=== PATIENT | male | born 1965 | race Hispanic/Latino ===

== ENCOUNTER 2018-08-26 07:21 | Emergency (ER) | payer OTHER, SELFPAY ==
[2018-08-26] MEDS ORDERED: TETRACAINE HCL 0.5% 2ML OPTH ONE (08:21)
[2018-08-26] MEDS ORDERED: METHYLPREDNISOLONE 125 MG INJ ONE (08:21)
--- NOTE | 2018-08-26 08:50 | EDPHYS ---
Physician Documentation [facility] Name: Joni Kwan Age: 53 yrs Sex: Male : 1965 Arrival Date: 08/26/2018 Time: 07:22 Bed 19 Private MD: ED Physician Umberto Montesinos HPI: 08/26 08:04 This 53 yrs old Male presents to ER via Ambulatory with complaints of Eye rn Swelling. 08:04 The patient is experiencing matting or discharge, redness, tearing, The patient rn sustained None. to both eyes, caused by an unknown mechanism. Onset: The symptoms/episode began/occurred 2 day(s) ago. Duration: the symptoms are continuous. Aggravated by closing eye, rubbing. Severity of symptoms: At their worst the symptoms were moderate in the emergency department the symptoms are unchanged. The patient has not experienced similar symptoms in the past. REports thinks got something in his eye, both eyes irritated, no change in vision, mild pain, more itchy and swollen, no trauma, + clear drainage. . Historical: - Allergies: 07:42 No Known Allergies; hb - Home Meds: 07:42 None [Active]; hb - PMHx: 07:42 None; hb - PSHx: 07:42 Left eye; hb - Immunization history:: Adult Immunizations up to date. - Social history:: Smoking status: Patient/guardian denies using tobacco. - Ebola Screening: : No symptoms or risks identified at this time. - Family history:: not pertinent. - Hospitalizations: : No recent hospitalization is reported. ROS: 08:04 Constitutional: Negative for fever, chills, and weight loss, Eyes: Negative for injury, rn + redness and discharge ENT: Negative for injury, pain, and discharge, Neck: Negative for injury, pain, and swelling, Skin: Negative for injury, rash, and discoloration, Neuro: Negative for headache, weakness, numbness, tingling, and seizure. Exam: 08:04 Visual Acuity: Visual acuity is within normal limits. rn 08:04 Constitutional: This is a well developed, well nourished patient who is awake, alert, and in no acute distress. Head/Face: Normocephalic, atraumatic. Eyes: Pupils equal round and reactive to light, extra-ocular motions intact. + erythema of both conjunctiva with moderate lid swelling of left eye, normal vision, several debris, looks like cat hair, in folds on conjunctivae, clear ocular drainage Vital Signs: 07:41 BP 188 / 119; Pulse 67; Resp 16; Temp 98.2; Pulse Ox 96% on R/A; Pain 6/10; hb 09:11 BP 167 / 102; Pulse 71; Resp 19; Pulse Ox 95% on R/A; em MDM: 07:41 Patient medically screened. rn 08:46 Differential diagnosis: Foreign body in Allergic conjunctivitis in. Data reviewed: rn vital signs, nurses notes, and as a result, I will discharge patient. Counseling: I had a detailed discussion with the patient and/or guardian regarding: the historical points, exam findings, and any diagnostic results supporting the discharge/admit diagnosis, the need for outpatient follow up, to return to the emergency department if symptoms worsen or persist or if there are any questions or concerns that arise at home. Response to treatment: the patient's symptoms have markedly improved after treatment, and as a result, I will discharge patient. Special discussion: I discussed with the patient/guardian in detail that at this point there is no indication for admission to the hospital. It is understood, however, that if the symptoms persist or worsen the patient needs to return immediately for re-evaluation. ED course: Multiple pieces of cat hair removed from folds on conjunctivae, irrigate thoroughly, feels better, most likely allergic swelling, has improved slightly with irrigation and steroids, will dc home with drops and steroids. . Administered Medications: 08:24 Drug: Tetracaine Drops 0.5 % 1 drops Route: Ophthalmic; Site: both eyes; em 09:01 Follow up: Response: No adverse reaction; Pain is decreased em 08:24 Drug: SOLU-Medrol 125 mg Route: IM; Site: right gluteus; em 09:01 Follow up: Response: No adverse reaction em Disposition: 08/26/18 08:49 Discharged to Home. Impression: Conjunctivitis, Foreign body in conjunctival sac, left eye. - Condition is Stable. - Discharge Instructions: Allergic Conjunctivitis, Adult, Eye Foreign Body. - Prescriptions for Prednisone 20 mg Oral Tablet - take 3 tablet by ORAL route once daily for 5 days; 15 tablet. Vigamox 0.5 % Ophthalmic Drops - instill 1 drop by OPHTHALMIC route every 8 hours for 7 days; 5 milliliter. - Medication Reconciliation Form, Thank You Letter, Antibiotic Education, Prescription Opioid Use form. - Follow up: Marilu Ashton MD; When: As needed; Reason: Recheck today's complaints, Re-evaluation by your physician. - Problem is new. - Symptoms have improved. Signatures: Jaison Griffith, VENDING ATTENDANT VENDING ATTENDANT Umberto Cary MD MD rn Baxter, Heather, RN RN Corrections: (The following items were deleted from the chart) 09:12 08:49 08/26/2018 08:49 Discharged to Home. Impression: Conjunctivitis; Foreign body in em conjunctival sac, left eye. Condition is Stable. Forms are Medication Reconciliation Form, Thank You Letter, Antibiotic Education, Prescription Opioid Use. Follow up: Marilu Ashton; When: As needed; Reason: Recheck today's complaints, Re-evaluation by your physician. Problem is new. Symptoms have improved. rn
--- NOTE | 2018-08-26 08:50 | ER ---
Nurse's Notes [facility] Name: Joni Kwan Age: 53 yrs Sex: Male : 1965 Arrival Date: 08/26/2018 Time: 07:22 Bed 19 Private MD: Diagnosis: Conjunctivitis;Foreign body in conjunctival sac, left eye Presentation: 08/26 07:41 Presenting complaint: Patient states: Left eye swelling and itching x 4 days. hb Transition of care: patient was not received from another setting of care. Onset of symptoms was August 22, 2018. Risk Assessment: Do you want to hurt yourself or someone else? Patient reports no desire to harm self or others. Care prior to arrival: None. 07:41 Method Of Arrival: Ambulatory hb 07:41 Acuity: KAE 3 hb 08:00 Initial Sepsis Screen: Does the patient meet any 2 criteria? No. Patient's initial em sepsis screen is negative. Does the patient have a suspected source of infection? No. Patient's initial sepsis screen is negative. Historical: - Allergies: 07:42 No Known Allergies; hb - Home Meds: 07:42 None [Active]; hb - PMHx: 07:42 None; hb - PSHx: 07:42 Left eye; hb - Immunization history:: Adult Immunizations up to date. - Social history:: Smoking status: Patient/guardian denies using tobacco. - Ebola Screening: : No symptoms or risks identified at this time. - Family history:: not pertinent. - Hospitalizations: : No recent hospitalization is reported. Screenin:00 Abuse screen: Denies threats or abuse. Nutritional screening: No deficits noted. em Tuberculosis screening: No symptoms or risk factors identified. Fall Risk None identified. Assessment: 08:00 General: Appears in no apparent distress. Behavior is calm, cooperative. Pain: em Complains of pain in left eye Pain currently is 6 out of 10 on a pain scale. Neuro: Level of Consciousness is awake, alert, obeys commands, Oriented to person, place, time, situation. Cardiovascular: Capillary refill < 3 seconds Patient's skin is warm and dry. Respiratory: Airway is patent Respiratory effort is even, unlabored, Respiratory pattern is regular, symmetrical. GI: Abdomen is obese. EENT: Eyes with foreign body noted in iris of left eye Sclera/Cornea are reddened in outer aspect of conjuctiva of right eye, inner aspect of conjuctiva of right eye, outer aspect of conjuctiva of left eye and inner aspect of conjunctiva of left eye Lid(s) swelling noted to left eye. Derm: Skin is intact, Skin is pink, warm \T\ dry. Musculoskeletal: Range of motion: intact in all extremities. 08:05 Reassessment: I agree with previous assessment. hb 09:11 Reassessment: Patient appears in no apparent distress at this time. Patient and/or em family updated on plan of care and expected duration. Pain level reassessed. Patient is alert, oriented x 3, equal unlabored respirations, skin warm/dry/pink. Patient states feeling better. Vital Signs: 07:41 BP 188 / 119; Pulse 67; Resp 16; Temp 98.2; Pulse Ox 96% on R/A; Pain 6/10; hb 09:11 BP 167 / 102; Pulse 71; Resp 19; Pulse Ox 95% on R/A; em ED Course: 07:22 Patient arrived in ED. as 07:41 Triage completed. hb 07:41 Umberto Montesinos MD is Attending Physician. rn 07:42 Arm band placed on right wrist. hb 07:48 Jaison Griffith LVN is Primary Nurse. em 08:00 Patient has correct armband on for positive identification. Bed in low position. Call em light in reach. 08:00 No provider procedures requiring assistance completed. Patient did not have IV access em during this emergency room visit. 08:48 Marilu Ashton MD is Referral Physician. rn Administered Medications: 08:24 Drug: Tetracaine Drops 0.5 % 1 drops Route: Ophthalmic; Site: both eyes; em 09:01 Follow up: Response: No adverse reaction; Pain is decreased em 08:24 Drug: SOLU-Medrol 125 mg Route: IM; Site: right gluteus; em 09:01 Follow up: Response: No adverse reaction em Outcome: 08:00 Discharged to home ambulatory. em 08:00 Condition: good 08:00 Discharge instructions given to patient, Instructed on discharge instructions, follow up and referral plans. medication usage, Demonstrated understanding of instructions, follow-up care, medications, Prescriptions given X 2. 08:49 Discharge ordered by . rn 09:12 Patient left the ED. em Signatures: Jaison Griffith LVN LVN Ela Avila Roman, MD MD rn Torri Nelson, SHAKIR RN hb
== END 2018-08-26 09:12 | disposition home or self-care (01) ==
LOC: ER 07:21
DX: H10.9 Unspecified conjunctivitis (principal); T15.12XA Foreign body in conjunctival sac, left eye, initial encounter
CPT/HCPCS: 96372; 99283; J2930

== ENCOUNTER 2019-11-16 11:58 | Observation (INO) | payer OTHER, SELFPAY ==
[2019-11-16 13:06] LABS: Absolute Lymphocytes (CBC) 1.5 K/uL (0.7-4.9); Basophils % 0.8 % (0-1.3); Hematocrit 51.4 % (39.6-49.0); Lymphocytes % 13.7 % (15.3-44.8); MPV 9.4 fL (7.6-11.3); RBC Red Blood Cell Count 6.18 M/uL (4.33-5.43)
--- NOTE | 2019-11-16 13:09 | RAD REPORT ---
EXAM DESCRIPTION: RAD - Chest Pa And Lat (2 Views) - 11/16/2019 1:02 pm CLINICAL HISTORY: fever, cough COMPARISON: September 2008 TECHNIQUE: PA and lateral views of the chest were obtained. FINDINGS: The lungs are clear. Heart size is normal and central vasculature is within normal limit s. No pleural effusion or pneumothorax seen. No acute bony finding noted. No aortic abnormality. IMPRESSION: No acute cardiopulmonary process. No suspicious interval change.
[2019-11-16 13:12] LABS: Arterial Blood Carboxyhemoglob 0.9 % (0-1.5); Blood O2 Saturation 93.5 % (92-98.5)
[2019-11-16 13:13] LABS: Protime INR 1.11
[2019-11-16 13:33] LABS: ALT/SGPT 33 U/L (12-78); AST/SGOT 19 U/L (15-37); Albumin 3.5 g/dL (3.4-5.0); Alkaline Phosphatase 95 U/L (45-117); BUN Blood Urea Nitrogen 14 mg/dL (7-18); Bicarbonate 33 mmol/L (21-32); Bilirubin Total 0.5 mg/dL (0.2-1.0); Glucose Level 110 mg/dL (74-106); Potassium 4.4 mmol/L (3.5-5.1); Protein, Total 8.2 g/dL (6.4-8.2); Sodium Level 136 mmol/L (136-145)
[2019-11-16] MEDS ORDERED: HYDRALAZINE HCL 20 MG/ML VIAL ONE (13:40)
--- NOTE | 2019-11-16 15:33 | ER ---
Nurse's Notes [facility] Name: Joni Kwan Age: 54 yrs Sex: Male : 1965 Arrival Date: 11/16/2019 Time: 12:00 Bed 28 [facility] MD: Diagnosis: Acute bronchitis;Bradycardia, unspecified Presentation: 11/16 12:08 Presenting complaint: Productive cough with yellow sputum, mild SOB, sore throat, hb headache, and nausea x 3-4 days. Vomit x 1 today. Transition of care: patient was not received from another setting of care. Onset of symptoms was November 13, 2019. Risk Assessment: Do you want to hurt yourself or someone else? Patient reports no desire to harm self or others. Initial Sepsis Screen: Does the patient meet any 2 criteria? No. Patient's initial sepsis screen is negative. Care prior to arrival: None. 12:08 Method Of Arrival: Ambulatory hb 12:08 Acuity: KAE 3 hb Historical: - Allergies: 12:10 Tramadol HCl; hb - Home Meds: 12:10 None [Active]; hb - PMHx: 12:10 None; hb - PSHx: 12:10 Left eye; Ankle - Right; hb - Immunization history:: Adult Immunizations up to date. - Social history:: Smoking status: Patient/guardian denies using tobacco. - Ebola Screening: : No symptoms or risks identified at this time. Screenin:56 Abuse screen: Denies threats or abuse. Nutritional screening: No deficits noted. sr5 Tuberculosis screening: No symptoms or risk factors identified. Fall Risk No fall in past 12 months (0 pts). No secondary diagnosis (0 pts). IV access (20 points). Ambulatory Aid- None/Bed Rest/Nurse Assist (0 pts). Gait- Impaired (20 pts.). Mental Status- Oriented to own ability (0 pts). Total Graham Fall Scale indicates Low Risk Score (25-44 pts). Fall prevention measures have been instituted. Frequent Obs/Assesments occuring. Assessment: 12:56 General: Appears ill, Behavior is calm, cooperative. Pain: Denies pain. Neuro: Level of sr5 Consciousness is awake, alert, obeys commands, Oriented to person, place, time, situation, but drifts off to sleep quickly. When patient sleeps HR drops down to 40s with nonconducted Pwaves, 2 nonconducted pwaves noted, then rhythm returns to 70's or 80's, pt reports that he has sleep apnea and has used a machine at night but no longer does. Provider notifed. 12 lead obtained. Pt to xray via wheelchair per order. Skin warm/dry/nc, SR on monitor outside of the previously mentioned episodes of sinus edu with nonconducted Pwaves, 18G LAC, labs drawn, BC #1 sent. Equal unlabored resp, room air sat remains >95%. . 15:36 Reassessment: No change in patient condition. Admitting doctor at bedside, manual BP sr5 164/94, auto 163/92 RIGHT arm. c/o headache. provider notifed. Equal unlabored resp, RA, skin warm/dry/nc, SR on monitor, HR 87, continues to edu down when sleeping, IV sites asympt/SL. Awaiting admission. Vital Signs: 12:10 BP 207 / 101; Pulse 68; Resp 18; Temp 97.9; Pulse Ox 100% on R/A; Weight 129.27 kg; hb Height 5 ft. 5 in. (165.10 cm); Pain 6/10; 12:56 BP 206 / 118; Pulse 71; Resp 20; Pulse Ox 100% on R/A; sr5 13:49 BP 159 / 89; Pulse 75; Resp 20; Pulse Ox 98% on R/A; sr5 14:31 BP 158 / 64; Pulse 53; Resp 20; Pulse Ox 100% on R/A; sr5 15:36 BP 164 / 94; Pulse 82; Resp 22; Pulse Ox 100% on R/A; Pain 8/10; sr5 16:27 BP 183 / 84 RA Supine; Pulse 86; Resp 20; Temp 99.0(O); Pulse Ox 100% on R/A; Pain 4/10;sr5 12:10 Body Mass Index 47.43 (129.27 kg, 165.10 cm) hb 13:49 continues to have episodes of sinus edu with nonconducted pwaves, HR down to 27 bpm sr5 on monitor, provider aware, quickly returns to HR 60-80's. 16:27 headache sr5 Vitals: 12:56 Cardiac Rhythm Assessment Sinus rhythm Other , intermintent episodes of nonconducted sr5 Pwaves. 15:36 Cardiac Rhythm Assessment Sinus rhythm. sr5 ED Course: 12:00 Patient arrived in ED. as 12:05 Ashish Kilpatrick PA is PHCP. stef 12:05 Emeka Baldwin MD is Attending Physician. jm 12:09 Triage completed. hb 12:10 Arm band placed on. hb 12:14 Truong Houston, RN is Primary Nurse. sr5 12:43 First set of blood cultures drawn. sr5 12:56 Patient has correct armband on for positive identification. Placed in gown. Bed in low sr5 position. Call light in reach. Side rails up X 1. surveillance monitor on. Pulse ox on. NIBP on. 12:56 Initial lab(s) drawn, by me, sent to lab. Inserted saline lock: 18 gauge in left sr5 antecubital area, using aseptic technique. Blood collected. 13:02 Chest Pa And Lat (2 Views) XRAY In Process Unspecified. EDMS 13:45 Second set of blood cultures drawn by me. jb1 13:46 Inserted saline lock: 22 gauge in right antecubital area, using aseptic technique. jb1 15:32 Ayan Chandra MD is Hospitalizing Provider. [facility] [place] Administered Medications: 13:48 Drug: hydrALAZINE 10 mg Route: IV; Rate: calculated rate; Site: left antecubital; sr5 14:31 Follow up: Response: Blood pressure is lowered sr5 17:47 Drug: hydrALAZINE 10 mg Route: IV; Rate: bolus; Site: left upper arm; sr5 17:48 Drug: Tylenol 650 mg Route: PO; sr5 Outcome: 15:32 Decision to Hospitalize by Provider. jm 18:14 Patient left the ED. sr5 Signatures: Dispatcher [employer] EDMS Jed Corley jb1 Ashish Kilpatrick PA PA jmm Martinez, Amelia as Baxter, Heather, RN RN Truong Houston, SHAKIR RN sr5
--- NOTE | 2019-11-16 15:34 | EDPHYS ---
Physician Documentation [facility] Name: Joni Kwan Age: 54 yrs Sex: Male : 1965 Arrival Date: 11/16/2019 Time: 12:00 Bed 28 Private MD: ED Physician Emeka Baldwin HPI: 11/16 12:22 This 54 yrs old Male presents to ER via Ambulatory with complaints of Flu jmm Symptoms. 12:22 The patient or guardian reports cough, described as moderate. Onset: The jmm symptoms/episode began/occurred gradually. Modifying factors: The symptoms are alleviated by nothing. the symptoms are aggravated by nothing. Associated signs and symptoms: Pertinent positives: sore throat, vomiting. This is a 54 year old male with no known chronic medical conditions that presents to the ED with complaints of cough, congestion, sore throat, vomiting beginning 2 days ago. . Historical: - Allergies: 12:10 Tramadol HCl; hb - Home Meds: 12:10 None [Active]; hb - PMHx: 12:10 None; hb - PSHx: 12:10 Left eye; Ankle - Right; hb - Immunization history:: Adult Immunizations up to date. - Social history:: Smoking status: Patient/guardian denies using tobacco. - Ebola Screening: : No symptoms or risks identified at this time. ROS: 12:22 Cardiovascular: Negative for chest pain, palpitations, and edema, Back: Negative for jmm injury and pain. 12:22 Constitutional: Positive for body aches, fatigue. 12:22 Respiratory: Positive for cough. 12:22 Abdomen/GI: Positive for vomiting. 12:22 All other systems are negative. Exam: 12:22 Constitutional: This is a well developed, well nourished patient who is awake, alert, jmm and in no acute distress. Head/Face: atraumatic. 12:22 Neck: Trachea midline, Supple Chest/axilla: Normal chest wall appearance and motion. 12:22 Back: Normal ROM Skin: General appearance color normal MS/ Extremity: Moves all extremities, no obvious deformities appreciated, no edema noted to the lower extremities Neuro: Awake and alert, normal gait Psych: Behavior is normal, Mood is normal, Patient is cooperative and pleasant 12:22 Eyes: Conjunctiva: exudate, in the left eye, injected. 12:22 ENT: Posterior pharynx: erythema, that is mild. 12:22 Cardiovascular: Rate: normal, Rhythm: regular, Pulses: no pulse deficits are appreciated. 12:22 Respiratory: the patient does not display signs of respiratory distress, Respirations: normal, Breath sounds: are clear throughout. 12:22 Abdomen/GI: Inspection: obese Bowel sounds: normal, Palpation: abdomen is soft and non-tender, in all quadrants. Vital Signs: 12:10 BP 207 / 101; Pulse 68; Resp 18; Temp 97.9; Pulse Ox 100% on R/A; Weight 129.27 kg; hb Height 5 ft. 5 in. (165.10 cm); Pain 6/10; 12:56 BP 206 / 118; Pulse 71; Resp 20; Pulse Ox 100% on R/A; sr5 13:49 BP 159 / 89; Pulse 75; Resp 20; Pulse Ox 98% on R/A; sr5 14:31 BP 158 / 64; Pulse 53; Resp 20; Pulse Ox 100% on R/A; sr5 15:36 BP 164 / 94; Pulse 82; Resp 22; Pulse Ox 100% on R/A; Pain 8/10; sr5 16:27 BP 183 / 84 RA Supine; Pulse 86; Resp 20; Temp 99.0(O); Pulse Ox 100% on R/A; Pain 4/10;sr5 12:10 Body Mass Index 47.43 (129.27 kg, 165.10 cm) hb 13:49 continues to have episodes of sinus edu with nonconducted pwaves, HR down to 27 bpm sr5 on monitor, provider aware, quickly returns to HR 60-80's. 16:27 headache sr5 MDM: 12:15 Patient medically screened. [facility] 15:30 Data reviewed: vital signs, nurses notes. Counseling: I had a detailed discussion with stef the patient and/or guardian regarding: the historical points, exam findings, and any diagnostic results supporting the discharge/admit diagnosis, lab results, radiology results, the need for further work-up and treatment in the hospital. ED course: I discussed the patient with Dr. Chandra due to the patient's episodes of bradycardia. After evaluation Dr. Chandra accepted the patient for admission for observation. . 11/16 12:22 Order name: Flu; Complete Time: 13:37 [facility] 11/16 12:22 Order name: Strep; Complete Time: 13:37 [facility] 11/16 12:22 Order name: CBC with Diff; Complete Time: 13:37 [facility] 11/16 12:22 Order name: CMP; Complete Time: 13:37 [facility] 11/16 12:22 Order name: Procalcitonin; Complete Time: 13:52 [facility] 11/16 12:22 Order name: Lactate; Complete Time: 14:33 [facility] 11/16 12:22 Order name: Blood Culture Adult (2) [facility] 11/16 12:27 Order name: Troponin (emerg Dept Use Only); Complete Time: 13:37 [facility] 11/16 12:40 Order name: Ptt, Activated; Complete Time: 13:37 [facility] 11/16 13:02 Order name: ABG [facility] 11/16 13:07 Order name: Protime (+INR); Complete Time: 13:37 [facility] 11/16 13:23 Order name: Throat Culture [facility] 11/16 16:25 Order name: Phosphorus; Complete Time: 16:29 [facility] 11/16 12:22 Order name: Chest Pa And Lat (2 Views) XRAY; Complete Time: 13:11 [facility] 11/16 12:22 Order name: Saline Lock; Complete Time: 12:56 [facility] 11/16 12:27 Order name: EKG - Nurse/Tech; Complete Time: 12:56 [facility] 11/16 14:49 Order name: EKG Electrocardiogram [facility] 11/16 16:25 Order name: Magnesium; Complete Time: 16:29 EDMS Administered Medications: 13:48 Drug: hydrALAZINE 10 mg Route: IV; Rate: calculated rate; Site: left antecubital; sr5 14:31 Follow up: Response: Blood pressure is lowered sr5 17:47 Drug: hydrALAZINE 10 mg Route: IV; Rate: bolus; Site: left upper arm; sr5 17:48 Drug: Tylenol 650 mg Route: PO; sr5 Disposition: 11/16/19 15:32 Hospitalization ordered by Ayan Chandra for Observation. Preliminary diagnosis are Acute bronchitis, Bradycardia, unspecified. - Bed requested for Telemetry/MedSurg (observation). - Status is Observation. sr5 - Condition is Stable. - Problem is new. - Symptoms are unchanged. UTI on Admission? No Addendum: 11/17/2019 19:35 Co-signature as Attending Physician, Emeka Baldwin MD I agree with the assessment and k dr plan of care. Signatures: Dispatcher [employer] [facility] Jannet Del Angel Emeka Stafford MD MD [facility] Ashish Kilpatrick, GLADYS PA [facility] Torri Nelson, RN RN Truong Houston, RN RN sr5 Corrections: (The following items were deleted from the chart) 11/16 13:07 12:41 PROTIME (+INR)+[id number].BRZ ordered. [facility] 16:24 15:32 Hospitalization Ordered by Ayan Chandra MD for Observation. Preliminary diagnosis bd is Acute bronchitis; Bradycardia, unspecified. Bed requested for Telemetry/MedSurg (observation). Status is Observation. Condition is Stable. Problem is new. Symptoms are unchanged. UTI on Admission? No. [facility] 18:14 16:24 11/16/2019 15:32 Hospitalization Ordered by Ayan Chandra MD for Observation. sr5 Preliminary diagnosis is Acute bronchitis; Bradycardia, unspecified. Bed requested for Telemetry/MedSurg (observation). Status is Observation. Condition is Stable. Problem is new. Symptoms are unchanged. UTI on Admission? No. bd
[2019-11-16 16:24] LABS: Magnesium 2.2 mg/dL (1.8-2.4); Phosphorus 2.8 mg/dL (2.5-4.9)
[2019-11-16] MEDS ORDERED: ACETAMINOPHEN 325 MG TABLET ONE (17:27)
[2019-11-16] MEDS ORDERED: ALBUTEROL 2.5 MG/3 ML NEB SOL NEB PRN (18:36)
[2019-11-16] MEDS ORDERED: ONDANSETRON 4 MG/2 ML VIAL IV PRN (18:36)
[2019-11-16] MEDS ORDERED: IPRATROPIUM BROM 0.5MG/2.5ML NEB PRN (18:36)
[2019-11-16 18:41] VITALS: BMI 47.4
[2019-11-16] MEDS ORDERED: METHYLPREDNISOLONE 40 MG INJ IV ONE (19:00)
[2019-11-16] MEDS: NA CHLORIDE 0.9% 1,000 ML IV SCH (20:06)
[2019-11-16 21:34] LABS: BUN Blood Urea Nitrogen 18 mg/dL (7-18); Bicarbonate 28 mmol/L (21-32); Glucose Level 132 mg/dL (74-106); Potassium 3.7 mmol/L (3.5-5.1); Sodium Level 136 mmol/L (136-145); Troponin I < 0.02 ng/mL (0.0-0.045)
[2019-11-16 21:50] LABS: Arterial Blood Carboxyhemoglob 1.2 % (0-1.5); Blood Gas Oxyhemoglobin 78.2 % (94-97); Blood O2 Saturation 79.6 % (92-98.5)
[2019-11-16 22:32] LABS: CKMB Creatine Kinase MB 2.6 ng/mL (0.3-3.6); Magnesium 2.2 mg/dL (1.8-2.4); Phosphorus 2.5 mg/dL (2.5-4.9); Thyroid Stimulating Hormone 0.593 uIU/mL (0.360-3.740)
[2019-11-16 22:55] LABS: Urine Appearance CLOUDY; Urine Blood NEGATIVE (NEG); Urine Color YELLOW; Urine Glucose NEGATIVE (NEG); Urine Protein 1+ (NEG); Urine Specific Gravity 1.025 (1.005-1.030)
[2019-11-16 23:35] LABS: Urine Microscopic Reflex ORDER UMIC
[2019-11-17 00:35] LABS: Urine Bacteria <20 /HPF (NONE SEEN); Urine Culture Reflex Order NOT NEEDED; Urine Mucus 3+ /HPF (NONE SEEN); Urine RBC <5 /HPF (NONE SEEN)
[2019-11-17 00:36] LABS: Urine Bilirubin NEGATIVE (NEG)
--- NOTE | 2019-11-17 01:14 | HP ---
Date of Admission: 11/16/2019 Chief Complaint: Cough, congestion, bradycardia. History Of Present Illness: Patient is a 54-year-old male with no significant past medical history, has not seen a physician in over 10 years, morbidly obese male, does have sleep apnea, but does not u se his CPAP machine, comes in for cough, congestion, and nausea. Patient had episode of green vomitu s. Denies any ill contacts. The patient's symptoms are constant, moderate, progressively worsening. He did not have any fever, chills. Does report some cough now with productive sputum. The patient denies any abdominal pain or diarrhea. The patient's workup revealed normal WBC count. There were no signs of sepsis. Lactate and procalcitonin were negative. Denied any chest pain or any significa nt shortness of breath. His ABG, however, showed a pCO2 of 58, PO2 of 71, and bicarb of 31.5, indica ting that he is a chronic CO2 retainer. Patient is a nonsmoker. Patient however, when he dozed off in the ER, did have multiple episodes of sinus bradycardia, the heart rate lowest in the 20s. The keyona kemp was therefore referred for admission. The patient's blood pressure was not well controlled 160 s/100s, was given hydralazine. When seen in the ER, he was awake, alert, and oriented x3, in some mi ld distress. Past Medical History: Obstructive sleep apnea, likely has multiple undiagnosed conditions including hypertension and chronic obstructive pulmonary disease. Surgical History: None. Allergies: TRAMADOL CAUSES NAUSEA AND VOMITING, MOST LIKELY AN ADVERSE REACTION, ABLE TO TOLERATE CO DEINE. Medications: None. Family History: Patient denies any family history of hypertension, diabetes, or cancer. Social History: Patient denies any tobacco use, alcohol use, or illicit drug use. Patient works in [employer]. , lives here locally. Review of Systems: Ten-point system reviewed, negative except as per HPI. Physical Examination: Vital Signs: Blood pressure 207/101, pulse 68, respirations 18, temperature 97.9, O2 100% on room ai r. General: Awake, alert, and oriented x3. Morbidly obese male, slightly ill-appearing. HEENT: Normocephalic, atraumatic. PERRLA. EOMI. Moist mucous membranes. Oropharynx is clear. Po or dentition. Conjunctivae are hyperemic. Neck: Supple, no JVD. Trachea midline. CV: S1, S2. Sinus bradycardia. Extremities: Peripheral pulses weak. Respiratory: Diminished breath sounds. No wheezing. Some rhonchi heard. No use of accessory muscl es. No stridor. Gastrointestinal: Abdomen is soft, nontender, nondistended. Positive bowel sounds. No guarding or rigidity. Extremities: No clubbing or cyanosis. No peripheral edema. Neuro: Cranial nerves 2 through 12 intact grossly. No focal neurological deficits. Speech is mary ellen l. Strength is 5/5 bilateral upper and lower extremities. Sensation intact to light touch. Skin: The patient has varicose veins of the lower extremities. Has very dry skin on the lower extre mities with excoriations in between his toes. Also exhibit signs of peripheral vascular disease and has minimal hair growth on his legs. Psych: Mood is okay. Affect is full. Insight and judgment are good. Laboratory Data: WBC 10.8, hemoglobin 16.7, hematocrit 51.4, platelets 268, neutrophils 77.6%. INR 1.11. ABGs; pH 7.35, pCO2 58.2, PO2 71.8, bicarb 31.5. Sodium 136, potassium 4.4, chloride 101, CO2 of 33, BUN 14, creatinine 0.82, glucose 110, lactate 1.1, calcium 8.9. Troponin less than 0.02. Pr ocalcitonin less than 0.05. Influenza screen negative. Strep screen also negative. Blood cultures have been obtained. Imaging Studies: Chest x-ray, no acute cardiopulmonary process, no suspicious interval change. Assessment: A 54-year-old male with, 1.Accelerated hypertension. Blood pressure systolic 200s, improved with hydralazine. We will mannie nue to monitor closely. We will add oral antihypertensives. 2.Acute bronchitis. We will give 1 dose of steroids and continue with nebulizer treatments. Patien t is hypoxemic. ABG shows a PO2 of 71. The patient is also hypercapnic. 3.Acute respiratory distress with hypoxia and hypercapnia. We will place on supplemental oxygen. W e will initiate BiPAP at night. 4.Obstructive sleep apnea. Patient has been noncompliant with his CPAP machine. He will likely nee d repeat sleep study as an outpatient and Pulmonology followup. We will continue with CPAP at night. 5.Hyperglycemia without diagnosis of diabetes. We will check hemoglobin A1c. 6.Morbid obesity, counseled. 7.Deep venous thrombosis prophylaxis, Lovenox. Plan: Admit the patient to Med-Surg, place as observation. Patient was counseled regarding followup regularly and establishing care with a family physician. ZHOU Voice ID: [id number]
[2019-11-17] MEDS: HYDRALAZINE HCL 20 MG/ML VIAL IV PRN ×2 (01:30→05:13)
[2019-11-17] MEDS: NA CHLORIDE 0.9% 1,000 ML IV SCH ×2 (03:25→14:26)
[2019-11-17] MEDS: ACETAMINOPHEN 500 MG TAB PO PRN (05:31)
[2019-11-17 06:03] LABS: Absolute Lymphocytes (CBC) 1.1 K/uL (0.7-4.9); Basophils % 0.2 % (0-1.3); Hematocrit 51.5 % (39.6-49.0); Lymphocytes % 9.1 % (15.3-44.8); MPV 9.5 fL (7.6-11.3)
[2019-11-17 06:06] LABS: ALT/SGPT 29 U/L (12-78); AST/SGOT 13 U/L (15-37); Albumin 3.5 g/dL (3.4-5.0); Alkaline Phosphatase 97 U/L (45-117); BUN Blood Urea Nitrogen 18 mg/dL (7-18); Bicarbonate 28 mmol/L (21-32); Bilirubin Total 0.5 mg/dL (0.2-1.0); Glucose Level 128 mg/dL (74-106); Potassium 4.8 mmol/L (3.5-5.1); Protein, Total 8.5 g/dL (6.4-8.2); Sodium Level 137 mmol/L (136-145); Thyroid Stimulating Hormone 0.455 uIU/mL (0.360-3.740)
[2019-11-17] MEDS: predniSONE 20 MG TAB PO SCH (08:46)
[2019-11-17] MEDS: Levofloxacin500mg IV 500 MG/100 ML BAG IV SCH (08:46)
[2019-11-17] MEDS: AMLODIPINE 10 MG TAB PO SCH (08:47)
[2019-11-17] MEDS: ENOXAPARIN 40 MG/0.4 ML SQ SCH (08:47)
[2019-11-17 09:00] LABS: Blood Morphology Comment NOT SEEN (NOT SEEN); Platelet Estimate ADEQ
[2019-11-17] MEDS ORDERED: INFLUENZA VACCINE (for 3y+) 0.5 ML DOSE IMVAC ONE (10:00)
--- NOTE | 2019-11-17 17:47 | PN ---
Subjective: Currently, patient is sitting at the side of the bed. His shortness of breath is somewh at better. He was on CPAP last night. He had episode of severe bradycardia. His heart rate accordi ng to the charge nurse went down all the way to the 20s. Blood pressure as well as dropped. His tem perature . He did not have any chest pain or abdominal pain. There was no nausea or vomit ing. Family is at the bedside. Physical Examination: Vital Signs: Blood pressure 128/67, respiratory rate 18, pulse 97, temperature 97.7, saturating 94% on room air. General: He is alert and oriented x3. Does not look in any distress. HEENT: Atraumatic, normocephalic. PERRLA. Oral mucosa is moist. Neck: Supple. No JVD. Chest: Mild rhonchi with expiratory wheezing. Heart: Regular rate and rhythm. S1, S2 normal. No gallop or murmur. Abdomen: Soft, nontender. No masses. No hepatosplenomegaly. Positive bowel sounds. Extremities: No clubbing or cyanosis. He does have +1 edema. Neurologic: Grossly intact. Cranial nerves exam 2 through 12 intact. Normal sensation. Normal ref lexes. Varicose vein noted in the lower extremity. Very dry skin with excoriation between his toes. Laboratory Data: Currently, labs: CBC; white blood cells 11.9, hemoglobin 16.6, platelets _. Chemistry within normal limits except for glucose of 128. Hemoglobin A1c pending. TSH normal. Cardiac enzyme negative. Assessment And Plan: 1.Accelerated hypertension, much better. The patient needs oral antihypertensives at home. I will start him on Norvasc here while inpatient. His blood pressure today is better. 2.Bronchitis. The patient will receive 1 dose of steroid with nebs. He is somewhat better. I will continue prednisone 60 mg as well as Levaquin for now as well as inhaler. 3.Obstructive sleep apnea. Patient is noncompliant with his CPAP. He will need to follow up with h is sleep doctor as outpatient, adjust his setting and mask. 4.Mild hyperglycemia. Hemoglobin A1c check was still pending. 5.Morbid obesity. Advised to lose weight. 6.Episode of bradycardia last night. We will keep the patient today until he gets evaluated by Card iology and see if the patient needs Holter monitor or any further workup. TSH is normal. There is n o electrolyte imbalance. 7.Deep vein thrombosis prophylaxis, on Lovenox. LORNA/SALLY Voice ID: [id number] Report ID: [id number]
[2019-11-18] MEDS: NA CHLORIDE 0.9% 1,000 ML IV SCH ×2 (00:21→10:36)
[2019-11-18] MEDS: ACETAMINOPHEN 500 MG TAB PO PRN (06:51)
[2019-11-18 08:51] VITALS: O2SAT 94
[2019-11-18] MEDS: AMLODIPINE 10 MG TAB PO SCH (09:00)
[2019-11-18] MEDS: ENOXAPARIN 40 MG/0.4 ML SQ SCH (09:08)
[2019-11-18] MEDS: Levofloxacin500mg IV 500 MG/100 ML BAG IV SCH (09:08)
[2019-11-18] MEDS: predniSONE 20 MG TAB PO SCH (09:08)
--- NOTE | 2019-11-18 11:46 | EKG ---
Test Date: 2019-11-16 Test Time: 22:00:09 Enthone Solder Stripper: RT-Dianna MEASUREMENT RESULTS: Intervals: Rate: 84 GA: 186 QRSD: 96 QT: 388 QTc: 458 [place]: P: 45 GA: 186 QRS: 62 T: 40 INTERPRETIVE STATEMENTS: Normal sinus rhythm Cannot rule out Anterior infarct, age undetermined Abnormal ECG Compared to ECG 11/16/2019 14:38:21 Myocardial infarct finding now present Sinus bradycardia no longer present Sinus arrhythmia no longer present Right-axis deviation no longer present Electronically Signed On 11-18-19 11:42:21 PROGRAMMING EQUIPMENT OPERATOR by Gonzales Sepulveda
--- NOTE | 2019-11-18 11:48 | EKG ---
Test Date: 2019-11-16 Test Time: 14:38:21 Offset Press Operator: SARTHAK MEASUREMENT RESULTS: Intervals: Rate: 42 FL: 196 QRSD: 100 QT: 418 QTc: 349 [place]: P: 44 FL: 196 QRS: 96 T: 40 INTERPRETIVE STATEMENTS: Marked sinus bradycardia with marked sinus arrhythmia Rightward axis Abnormal ECG Compared to ECG 11/16/2019 12:52:52 Right-axis deviation now present Sinus rhythm no longer present Myocardial infarct finding no longer present Electronically Signed On 11-18-19 11:42:38 PLAY LEADER by Gonzales Sepulveda
--- NOTE | 2019-11-18 11:49 | EKG ---
Test Date: 2019-11-16 Test Time: 12:52:52 Funding Coordinator: DRISS MEASUREMENT RESULTS: Intervals: Rate: 82 MS: 194 QRSD: 98 QT: 386 QTc: 450 [place]: P: 53 MS: 194 QRS: 66 T: 41 INTERPRETIVE STATEMENTS: Normal sinus rhythm Cannot rule out Anterior infarct, age undetermined Abnormal ECG No previous ECG available for comparison Electronically Signed On 11-18-19 11:42:41 PAD MACHINE FEEDER by Gonzales Sepulveda
[2019-11-18 14:21] VITALS: BP 155/82; TEMP 97.5
--- NOTE | 2019-11-19 08:16 | DS ---
Date of Discharge: 11/18/2019 Discharge Diagnoses: 1.Acute bronchitis. 2.Polycythemia. 3.Obstructive sleep apnea. 4.Morbid obesity. 5.Episode of bradycardia. 6.Hypertension. Consult: Cardiology. Procedure: Chest x-ray, which was normal. For history of present illness, please refer to Dr. Chandra's admission note. Hospital Course: Initially, patient presented with progressive cough, congestion, and mild nausea. In the ER on evaluation, patient found to be hypertensive with blood pressure of 160/100 and multiple episodes of bradycardia. Patient was admitted to the floor and started on Solu-Medrol dose. His br eathing improved and continued treatment for presumed bronchitis with Levaquin and prednisone with br adycardia episode. Dr. Sepulveda from Cardiology was consulted and there is no note in the chart, but Dr. Sepulveda advised the charge nurse on the floor that he will not consider any cardiac workup at thi s point, and patient okay to be discharged yesterday. Patient was kept overnight and he had a CPAP a t night and he did very well. He was started on 10 mg of Norvasc for blood pressure control. He was discharge on 2 weeks worth of prescription for Norvasc and he was asked to be followed [facility] to optimize his medication and decide if he would like to continue Norvasc. Patient 's hematocrit was elevated around 51. Most likely, secondary to sleep apnea and he was ad vised no need for Hematology to consider phlebotomy. I will start him on low-dose aspirin daily. In the meantime, he will be discharged home also on Levaquin as well as on Medrol Crescencio. Discharge Condition: Stable. Discharged Diet: Cardiac. Discharge Followup: With primary care physician on Tuesday to adjust blood pressure medication. Cons ider hematology consult. Follow Cardiology recommendation. Physical Examination On Discharge: Vital Signs: Blood pressure is 142/95, respiratory rate 20, puls e 86, temperature 97.4, saturating 92% on room air. General: Patient is alert and oriented x3. Patient is slightly congested. HEENT: Atraumatic, normocephalic. PERRLA. Oral mucosa is moist. Neck: Supple. No JVD. No carotid bruits. Chest: Clear to auscultation. Good air entry. Heart: Regular rate and rhythm. S1, S2 normal. No gallop. Abdomen: Soft, nontender. No masses. No hepatosplenomegaly. Obese. Positive bowel sounds. Extremities: No clubbing, no cyanosis. +1 edema. Varicose vein noted in lower extremity. Dry skin with some excoriation between the toes. Discharge Medications: Levaquin 500 mg for 5 more days, Medrol Crescencio, aspirin 81 mg orally once a day, and Norvasc 10 mg daily. . LORNA/SALLY Voice ID: [id number] Report ID: [id number]
--- NOTE | 2019-11-19 17:17 | CON ---
Date of Consultation: 11/17/[address] Sky on 11/16/2019. I saw the patient on 11/17/2019. Reason For Consultation: Bradycardia. History Of Present Illness: Mr. Kwan is 54, have severe sleep apnea for which he does not wear a CPAP. Has morbid obesity. He came in with flu-like symptoms, but while he was being treated here, h e was noted to have up to 4 point second pauses while he was asleep, asymptomatic. No hemodynamic co mpromise. Patient is aware that he has sleep apnea and that he is not being treated for it, because it makes him uncomfortable. He denied syncope, denied chest pain, denied nausea, vomiting, diaphores is, PND, orthopnea, or pedal edema. Past Medical History: Otherwise negative. Allergies: NONE. Review of Systems: Negative. Social History: Negative. Family History: Negative. Medications: At this point include antibiotics, amlodipine, hydralazine, steroids, and he is also on Lovenox. Physical Examination: General: Very pleasant, no acute distress. Vital Signs: Stable, afebrile. Heart rate is 90, sinus rhythm. HEENT: Negative. Neck: Supple, no bruit. Chest: Clear to auscultation and percussion. Cardiac: Revealed a regular rhythm and rate. No murmurs, gallops, or rubs. Abdomen: Benign. Extremities: Revealed no clubbing, cyanosis, or edema. Diagnostic Data: All within normal limits. Impression And Plan: Patient have sinus pauses up to 4 point second secondary to sleep apnea. This is secondary to his obesity. Patient has no symptoms, no hemodynamic compromise while he is awake. This does not require any specific cardiac treatment, but he should wear his CPAP. I recommended wilber t strongly. He follow up with his primary care physician and his pulmonary physician in the near fut ure. No cardiac workup or followup needs to be done at this point. I think he may have an echocardi ogram pending if he stays here till Tuesday, but from my standpoint, he can go home. I will see him a s an outpatient. Otherwise, continue rest of the therapy. HALLIE/SALLY Voice ID: [id number] Report ID: [id number]
== END 2019-11-18 14:05 | disposition home or self-care (01) ==
LOC: ER 11:58 → ERHOLD 14:56 → 2ND 18:00
PROVIDERS: ADMIT Family Medicine; ATTEND Family Medicine
DX: J20.9 Acute bronchitis, unspecified (principal); D75.1 Secondary polycythemia; G47.33 Obstructive sleep apnea (adult) (pediatric); E66.01 Morbid (severe) obesity due to excess calories; Z68.42 Body mass index [BMI] 45.0-49.9, adult; R00.1 Bradycardia, unspecified; I10 Essential (primary) hypertension; Z23 Encounter for immunization
CPT/HCPCS: 93005 ×3; 87040 ×2; 87070; 85025 ×2; 80048; 36415 ×2; 83735 ×2; 84100 ×2; 85610; 82947 ×3; 85379; 87081; 83605; 85730; 84443 ×2; 83036; 84484 ×2; 82553; 80053 ×2; 84145; 87804 ×2; 71046; 90471; 82805 ×2; 94760 ×7; 94660 ×2; 99284; J0360 ×3; Q2035; J7512 ×2; J1650 ×2; J7030 ×4; J2920; G0378 ×4; 81003; 81015

== ENCOUNTER 2021-01-18 12:22 | Emergency (ER) | payer OTHER, SELFPAY ==
[2021-01-18 15:20] LABS: Absolute Lymphocytes (CBC) 1.2 K/uL (0.7-4.9); Basophils % 0.4 % (0-1.3); Hematocrit 49.7 % (39.6-49.0); Lymphocytes % 8.9 % (15.3-44.8); MPV 9.5 fL (7.6-11.3); RBC Red Blood Cell Count 6.06 M/uL (4.33-5.43)
--- NOTE | 2021-01-18 15:28 | RAD REPORT ---
EXAM DESCRIPTION: RAD - Ankle Right 3 View - 01/18/2021 2:39 pm CLINICAL HISTORY: Right ankle pain FINDINGS: Screws have been placed into the lateral malleolus and talus. No acute fracture or dislocation seen. Erosions and bony destruction involving anterior talus and adjacent navicular with bony fragmentation . This could be secondary to osteomyelitis or a neuropathic joint Large calcaneal spurs. No acute fracture or dislocation Small lucency along the medial aspect of the talar dome may represent a subchondral cyst or area of o steonecrosis
[2021-01-18 15:40] LABS: Albumin 3.5 g/dL (3.4-5.0); Bilirubin Total 1.2 mg/dL (0.2-1.0); Potassium 3.7 mmol/L (3.5-5.1); Protein, Total 8.5 g/dL (6.4-8.2)
[2021-01-18] MEDS ORDERED: MORPHINE 4 MG/ML SYR ONE (15:43)
[2021-01-18] MEDS ORDERED: ONDANSETRON 4 MG/2 ML VIAL ONE (15:43)
--- NOTE | 2021-01-18 16:11 | RAD REPORT ---
EXAM DESCRIPTION: USExtremity Venous Uni Ltd01/18/2021 3:57 pm CLINICAL HISTORY: Right leg pain COMPARISON: 2016 FINDINGS: Right common femoral, superficial femoral, popliteal and right posterior tibial veins are compressible and demonstrate augmentation. Doppler demonstrates good flow. IMPRESSION: No evidence of deep venous thrombosis involving the right lower extremity.
[2021-01-18] MEDS ORDERED: KETOROLAC 30 MG/ML INJ ONE ×2 (16:56→20:54)
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
[2021-01-18] MEDS ORDERED: CEPHALEXIN 250 MG CAP ONE (20:33)
[2021-01-19 00:51] VITALS: TEMP 98.7
[2021-01-19 00:57] VITALS: BP 140/72; O2SAT 95
== END 2021-01-18 20:49 | disposition home or self-care (01) ==
LOC: ER 12:22
DX: M25.571 Pain in right ankle and joints of right foot (principal); Z88.5 Allergy status to narcotic agent
CPT/HCPCS: 36415; 80053; 85025; 93971; 96374; 96375; 99285; J2405

== ENCOUNTER 2022-01-13 01:12 | Inpatient (IN) | payer SELFPAY ==
[2022-01-13] MEDS ORDERED: ACETAMINOPHEN 500 MG TAB ONE (02:40)
[2022-01-13] MEDS ORDERED: NA CHLORIDE 0.9% 2,000 ML ONE (02:41)
[2022-01-13 02:44] LABS: Absolute Lymphocytes (CBC) 0.4 K/uL (0.7-4.9); Hematocrit 42.2 % (39.6-49.0); Lymphocytes % 5.5 % (15.3-44.8); MPV 8.2 fL (7.6-11.3); RBC Red Blood Cell Count 5.16 M/uL (4.33-5.43)
[2022-01-13 02:48] LABS: Protime INR 1.3
[2022-01-13 02:50] LABS: Urine Blood Trace-intact (Negative); Urine Glucose Negative (Negative); Urine Protein Negative (Negative); Urine Specific Gravity 1.025 (1.005-1.030)
[2022-01-13 03:21] LABS: Barbiturates NEGATIVE (NEGATIVE); Benzodiazepines NEGATIVE (NEGATIVE); Cocaine NEGATIVE (NEGATIVE); METHAMPHETAM POSITIVE (NEGATIVE); Methadone NEGATIVE (NEGATIVE); Opiates NEGATIVE (NEGATIVE); Phencyclidine NEGATIVE (NEGATIVE); THC Cannibis NEGATIVE (NEGATIVE)
[2022-01-13 03:21] LABS: ALT/SGPT 21 U/L (12-78); AST/SGOT 22 U/L (15-37); Albumin 3.4 g/dL (3.4-5.0); Alkaline Phosphatase 93 U/L (45-117); Amylase 64 U/L (25-115); BUN Blood Urea Nitrogen 13 mg/dL (7-18); Bicarbonate 28 mmol/L (21-32); Bilirubin Direct 0.3 mg/dL (0-0.2); Bilirubin Total 1.3 mg/dL (0.2-1.0); CKMB Creatine Kinase MB < 1.0 ng/mL (1.0-3.6); Creatine Phosphokinase 59 U/L (39-308); Glucose Level 96 mg/dL (74-106); Lipase 109 U/L (73-393); Potassium 3.5 mmol/L (3.5-5.1); Protein, Total 7.9 g/dL (6.4-8.2); Sodium Level 132 mmol/L (136-145)
[2022-01-13] MEDS ORDERED: CEFTRIAXONE 1000 MG/VIAL ONE (03:27)
[2022-01-13 03:46] LABS: Urine Bacteria >50 /HPF (NONE SEEN)
[2022-01-13 03:47] LABS: Urine RBC <5 /HPF (NONE SEEN)
[2022-01-13 04:02] LABS: Blood Morphology Comment NOT SEEN (NOT SEEN); Platelet Estimate ADEQ
[2022-01-13 04:10] LABS: SARS-COV-2 RT PCR NEGATIVE (NEGATIVE)
--- NOTE | 2022-01-13 04:35 | ER ---
Nurse's Notes [facility] Name: Joni Kwan Age: 56 yrs Sex: Male : 1965 Arrival Date: 01/13/2022 Time: 01:17 Bed 18 Private MD: Diagnosis: UTI/ Urinary tract infection, site not specified;Sepsis, unspecified organism;Methamphetamine abuse Presentation: 01/13 01:52 Chief complaint: Patient states: fever and chills that started around 1500 yesterday fu afternoon. Patient's reported that patient fell yesterday around 1300h. Patient denies hitting his head. Coronavirus screen: Vaccine status: Patient reports receiving the 2nd dose of the covid vaccine. Ebola Screen: No symptoms or risks identified at this time. Initial Sepsis Screen: Does the patient meet any 2 criteria? RR > 20 per min. Temp <36.0*C (96.8*F)) or > 38.3*C (100.9*F). Does the patient have a suspected source of infection? Yes: Skin breakdown/wound. Risk Assessment: Do you want to hurt yourself or someone else? Patient reports no desire to harm self or others. Onset of symptoms was January 12, 2022. 01:52 Method Of Arrival: Wheelchair fu 01:52 Acuity: KAE 3 fu Historical: - Allergies: 01:59 Tramadol HCl; fu - PMHx: 02:01 Sleep apnea; fu - PSHx: 02:01 right foot surgery; fu - Immunization history:: Adult Immunizations not up to date. - Social history:: Smoking status: Patient denies any tobacco usage or history of. Patient/guardian denies using tobacco products. Screenin:11 Abuse screen: Denies threats or abuse. Nutritional screening: No deficits noted. fu Tuberculosis screening: No symptoms or risk factors identified. Fall Risk None identified. Assessment: 02:04 General: Appears uncomfortable, Behavior is calm, cooperative, appropriate for age, fu Reports chills for 12-24 hours, fever for. Pain: Complains of pain in right foot Pain does not radiate. Pain currently is 8 out of 10 on a pain scale. Quality of pain is described as aching, Pain began at 1500 yesterday. Neuro: Level of Consciousness is awake, alert, obeys commands, Oriented to person, place, time, situation, Quality Assurance Intern are equal bilaterally Moves all extremities. Gait is unsteady, Speech is normal, Facial symmetry appears normal. Respiratory: Respiratory effort is even, Respiratory pattern is tachypnea. EENT: Eyes redness and tearing noted. edema to periorbital area noted. Derm: Wound noted right foot swelling to right foot noted. 02:04 Cardiovascular: Denies chest pain. GI: Patient currently denies abdominal pain, fu diarrhea, nausea. : Denies burning with urination, urinary frequency. Musculoskeletal: Swelling present in right foot. 03:37 Reassessment: Patient and/or family updated on plan of care and expected duration. Pain fu level reassessed. Patient is alert, oriented x 3, equal unlabored respirations, skin warm/dry/pink. Patient states symptoms have improved. 04:01 Reassessment: Patient asleep in bed, sleep apnea noted, at bedside. fu 04:53 Reassessment: Patient and/or family updated on plan of care and expected duration. Pain fu level reassessed. Patient is alert, oriented x 3, equal unlabored respirations, skin warm/dry/pink. Vital Signs: 01:52 BP 167 / 92; Pulse 124; Resp 22; Temp 103.3; Pulse Ox 96% on R/A; Pain 8/10; fu 02:34 Weight 87.09 kg (R); Height 5 ft. 5 in. (165.10 cm) (R); fu 03:17 BP 149 / 88; Pulse 108; Resp 30; Temp 98.6; Pulse Ox 93% on R/A; Pain 0/10; fu 03:47 BP 158 / 86; Pulse 104; Resp 26; Temp 99.7(O); Pulse Ox 93% on R/A; fu 04:30 BP 154 / 85; Pulse 97; Resp 15; Temp 98.9(O); Pulse Ox 96% ; fu 02:34 Body Mass Index 31.95 (87.09 kg, 165.10 cm) fu ED Course: 01:17 Patient arrived in ED. ja2 01:51 Tao Bustillos RN is Primary Nurse. fu 01:54 Brian Cortez MD is Attending Physician. 7 01:59 Triage completed. fu 02:25 Inserted saline lock: 20 gauge in right antecubital area, using aseptic technique. fu Blood collected. 02:29 First set of blood cultures drawn by me. fu 02:50 UDS Sent. fu 02:50 Blood Culture Adult (2) Sent. fu 02:50 Amylase, Serum Sent. fu 02:50 Basic Metabolic Panel Sent. fu 02:51 Bilirubin, Direct Sent. fu 02:51 CBC with Diff Sent. fu 02:51 CPK Sent. fu 02:51 Ckmb Sent. fu 02:51 LFT's Sent. fu 02:52 Patient has correct armband on for positive identification. Bed in low position. Call fu light in reach. Side rails up X2. revenue cycle specialist on. Pulse ox on. NIBP on. 03:00 CT Head C Spine In Process Unspecified. EDMS 03:00 Second set of blood cultures drawn by me. fu 03:01 CT Facial Bones W/ Con \\T\\ Mpr In Process Unspecified. EDMS 03:03 COVID-19/FLU A+B (Document "Date of Onset" if Symptomatic) Sent. fu 03:04 Urine collected: clean catch specimen, louis colored, Amount Voided: 300mL. fu 03:05 EKG done, by ED staff, reviewed by Brian Cortez MD. fu 03:05 COVID swab sent to lab. Flu and/or RSV swab sent to lab. Strep swab sent to lab. fu 03:16 Chest Single View XRAY In Process Unspecified. EDMS 03:16 Ankle Right 3 View XRAY In Process Unspecified. EDMS 03:16 Foot Right 3 View XRAY In Process Unspecified. EDMS 03:16 Inserted saline lock: 20 gauge in right forearm, using aseptic technique. fu 04:33 Vicki Garcia MD is Hospitalizing Provider. [facility] 05:20 No provider procedures requiring assistance completed. fu 05:28 Patient admitted, IV remains in place. fu 07:13 Primary Nurse role handed off by Tao Bustillos, RN bp 07:13 Haseeb Jimenez, RN is Primary Nurse. bp Administered Medications: 02:45 Drug: Acetaminophen 1000 mg Route: PO; fu 03:21 Follow up: Response: Temperature is decreased fu 02:45 Drug: NS 0.9% (30 ml/kg) 30 ml/kg Route: IV; Rate: bolus; Site: right antecubital; fu 03:26 Drug: Rocephin (cefTRIAXone) 1 grams Route: IV; Rate: per protocol; Site: right fu antecubital; 04:00 Follow up: Response: No adverse reaction fu 07:51 Follow up: IV Status: Completed infusion; IV Intake: 100ml bp 04:00 Drug: NS 0.9% (30 ml/kg) 30 ml/kg Route: IV; Rate: bolus; Site: right forearm; fu 04:51 Drug: Tetracaine Drops 0.5 % 1 drops Route: Ophthalmic; Site: both eyes; fu 05:29 Follow up: Response: No adverse reaction fu Intake: 07:51 IV: 100ml; Total: 100ml. bp Outcome: 04:34 Decision to Hospitalize by Provider. [facility] 05:27 Admitted to ER Hold. Please see [facility] for further documentation. fu 05:27 Condition: stable 05:27 Instructed on the need for admit. 08:12 Patient left the ED. iw Signatures: Dispatcher [employer] EDMelody Funez RN RN Tao Bustillos RN RN fu Peltier, Brian, RN RN bp Holmes, Maurice, MD MD [facility] Yu Jones Corrections: (The following items were deleted from the chart) 02:02 02:01 PSHx: righ foot surgery; fu fu 02:04 01:52 Chief complaint: Patient states: fever and chills that started around 1500 fu yesterday afternoon fu 03:37 01:52 Chief complaint: Patient states: fever and chills that started around 1500 fu yesterday afternoon fu
--- NOTE | 2022-01-13 04:35 | EDPHYS ---
Physician Documentation [facility] Name: Joni Kwan Age: 56 yrs Sex: Male : 1965 Arrival Date: 01/13/2022 Time: 01:17 Bed 18 Private MD: ED Physician Brian Cortez HPI: 01/13 02:32 This 56 yrs old Male presents to ER via Wheelchair with complaints of Fever, mh7 Pain All Over, Eye Swelling. 02:32 The patient reports fever, not measured (subjective). Onset: The symptoms/episode mh7 began/occurred yesterday, at 15:00. Modifying factors: there are no obvious modifying factors. Associated signs and symptoms: Pertinent positives: chills, cough, that is dry, myalgias, swelling. Severity of symptoms: At their worst the symptoms were moderate last night, in the emergency department the symptoms are unchanged. Historical: - Allergies: 01:59 Tramadol HCl; fu - PMHx: 02:01 Sleep apnea; fu - PSHx: 02:01 right foot surgery; fu - Immunization history:: Adult Immunizations not up to date. - Social history:: Smoking status: Patient denies any tobacco usage or history of. Patient/guardian denies using tobacco products. ROS: 02:32 ENT: Negative for injury, pain, and discharge, Neck: Negative for injury, pain, and mh7 swelling, Cardiovascular: Negative for chest pain, palpitations, and edema, Respiratory: Negative for shortness of breath, cough, wheezing, and pleuritic chest pain, Abdomen/GI: Negative for abdominal pain, nausea, vomiting, diarrhea, and constipation, Back: Negative for injury and pain, : Negative for injury, bleeding, discharge, and swelling, Skin: Negative for injury, rash, and discoloration, Psych: Negative for depression, anxiety, suicide ideation, homicidal ideation, and hallucinations, Allergy/Immunology: Negative for hives, rash, and allergies, Endocrine: Negative for neck swelling, polydipsia, polyuria, polyphagia, and marked weight changes, Hematologic/Lymphatic: Negative for swollen nodes, abnormal bleeding, and unusual bruising. Exam: 02:32 Chest/axilla: Normal chest wall appearance and motion. Nontender with no deformity. mh7 No lesions are appreciated. Respiratory: Lungs have equal breath sounds bilaterally, clear to auscultation and percussion. No rales, rhonchi or wheezes noted. No increased work of breathing, no retractions or nasal flaring. Abdomen/GI: Soft, non-tender, with normal bowel sounds. No distension or tympany. No guarding or rebound. No evidence of tenderness throughout. Back: No spinal tenderness. No costovertebral tenderness. Full range of motion. Skin: Warm, dry with normal turgor. Normal color with no rashes, no lesions, and no evidence of cellulitis. MS/ Extremity: Pulses equal, no cyanosis. Neurovascular intact. Full, normal range of motion. Neuro: Awake and alert, GCS 15, oriented to person, place, time, and situation. Cranial nerves II-XII grossly intact. Motor strength 5/5 in all extremities. Sensory grossly intact. Cerebellar exam normal. Normal gait. Psych: Awake, alert, with orientation to person, place and time. Behavior, mood, and affect are within normal limits. 02:32 Constitutional: The patient appears alert, awake, obviously ill. 02:32 Cardiovascular: Rate: tachycardic, Rhythm: regular, Pulses: no pulse deficits are appreciated, Heart sounds: normal, normal S1and S2, Edema: is not appreciated, JVD: is not appreciated. 02:32 Head/Face: Normocephalic, atraumatic. mh7 02:32 Neck: Trachea midline, no thyromegaly or masses palpated, and no cervical lymphadenopathy. Supple, full range of motion without nuchal rigidity, or vertebral point tenderness. No Meningismus. 02:32 Eyes: Periorbital structures: appear normal, Pupils: equal, round, and reactive to light and accomodation, Extraocular movements: intact throughout, Conjunctiva: injected, bilaterally, Corneas: are normal, abrasion, is not appreciated, foreign body, is not appreciated, a fluorescein strip employed to appreciate the findings, Sclera: no appreciated abnormality, Lids and lashes: edema, bilaterally, funduscopic exam reveals no obvious abnormalities, Visual guidry: are intact, Nystagmus: is not appreciated. 03:10 ECG was reviewed by the Attending Physician. [facility] Vital Signs: 01:52 BP 167 / 92; Pulse 124; Resp 22; Temp 103.3; Pulse Ox 96% on R/A; Pain 8/10; fu 02:34 Weight 87.09 kg (R); Height 5 ft. 5 in. (165.10 cm) (R); fu 03:17 BP 149 / 88; Pulse 108; Resp 30; Temp 98.6; Pulse Ox 93% on R/A; Pain 0/10; fu 03:47 BP 158 / 86; Pulse 104; Resp 26; Temp 99.7(O); Pulse Ox 93% on R/A; fu 04:30 BP 154 / 85; Pulse 97; Resp 15; Temp 98.9(O); Pulse Ox 96% ; fu 02:34 Body Mass Index 31.95 (87.09 kg, 165.10 cm) fu MDM: 04:31 Differential diagnosis: viral Infection, bacterial infection, URI, bronchitis, 7 pneumonia UTI. Data reviewed: vital signs, nurses notes, old medical records, lab test result(s), cardiac enzymes, CBC, drug level(s), acetaminophen, alcohol, salicylate, electrolytes, Flu: negative urinalysis, bacteruria, EKG, radiologic studies, CT scan, plain films. Data interpreted: Pulse oximetry: on room air is 96 %. Interpretation: normal. Counseling: I had a detailed discussion with the patient and/or guardian regarding: the historical points, exam findings, and any diagnostic results supporting the discharge/admit diagnosis, the presence of at least one elevated blood pressure reading (>120/80) during this emergency department visit, lab results, radiology results, the need for further work-up and treatment in the hospital. Response to treatment: the patient's symptoms have markedly improved after treatment. 04:34 Patient medically screened. [facility] 01/13 02:10 Order name: Amylase, Serum [facility] 01/13 02:10 Order name: Basic Metabolic Panel [facility] 01/13 02:10 Order name: Bilirubin, Direct [facility] 01/13 02:10 Order name: Blood Culture Adult (2) [facility] 01/13 02:10 Order name: CBC with Diff [facility] 01/13 02:10 Order name: CPK [facility] 01/13 02:10 Order name: Ckmb [facility] 01/13 02:10 Order name: LFT's [facility] 01/13 02:10 Order name: Lactate; Complete Time: 03:06 [facility] 01/13 02:10 Order name: Lipase; Complete Time: 04:12 [facility] 01/13 02:10 Order name: Procalcitonin; Complete Time: 04:12 [facility] 01/13 02:10 Order name: Protime (+inr); Complete Time: 03:06 [facility] 01/13 02:10 Order name: Ptt, Activated; Complete Time: 03:06 [facility] 01/13 02:10 Order name: Troponin HS; Complete Time: 04:12 [facility] 01/13 02:10 Order name: Urine Culture [facility] 01/13 02:10 Order name: Urine Microscopic Only; Complete Time: 04:12 [facility] 01/13 02:10 Order name: COVID-19/FLU A+B (Document "Date of Onset" if Symptomatic); Complete Time: [facility] 04:12 01/13 02:11 Order name: Amylase; Complete Time: 04:12 [facility] 01/13 02:11 Order name: Basic Metabolic Panel; Complete Time: 04:12 [facility] 01/13 02:11 Order name: Blood Culture [facility] 01/13 02:11 Order name: CBC with Automated Diff; Complete Time: 04:12 [facility] 01/13 02:11 Order name: Creatine Phosphokinase; Complete Time: 04:12 [facility] 01/13 02:11 Order name: CKMB Creatine Kinase MB; Complete Time: 04:12 [facility] 01/13 02:11 Order name: Liver (Hepatic) Function; Complete Time: 04:12 [facility] 01/13 02:11 Order name: Rapid Strep; Complete Time: 04:12 [facility] 01/13 02:14 Order name: ETOH Level; Complete Time: 04:12 [facility] 01/13 02:14 Order name: UDS; Complete Time: 04:12 [facility] 01/13 02:14 Order name: Salicylate; Complete Time: 04:12 [facility] 01/13 02:10 Order name: Chest Single View XRAY [facility] 01/13 02:10 Order name: Accucheck; Complete Time: 02:44 01/13 02:10 Order name: Cardiac monitoring; Complete Time: 02:51 01/13 02:10 Order name: EKG - Nurse/Tech; Complete Time: 03:03 [facility] 01/13 02:10 Order name: IV Saline Lock - Large Bore; Complete Time: 02:44 [facility] 01/13 02:10 Order name: Labs collected and sent; Complete Time: 02:44 7 01/13 02:10 Order name: O2 Per Protocol; Complete Time: 02:44 7 01/13 02:10 Order name: O2 Sat Monitoring; Complete Time: 02:44 7 01/13 02:10 Order name: Urine Dipstick-Ancillary (obtain specimen); Complete Time: 02:51 7 01/13 02:11 Order name: CT Head C Spine [facility] 01/13 02:13 Order name: Ankle Right 3 View XRAY [facility] 01/13 02:13 Order name: Foot Right 3 View XRAY [facility] 01/13 02:26 Order name: CT Facial Bones W/ Con \\T\\ Mpr [facility] 01/13 02:41 Order name: Acetaminophen Level; Complete Time: 04:12 [facility] 01/13 02:46 Order name: Manual Differential; Complete Time: 04:12 [facility] 01/13 02:50 Order name: Urine Dipstick-Ancillary; Complete Time: 03:06 [facility] 01/13 02:55 Order name: Glucose, Ancillary Testing; Complete Time: 03:06 [facility] 01/13 03:09 Order name: CREATININE WHOLE BLOOD [facility] 01/13 03:35 Order name: Throat Culture [facility] 01/13 04:35 Order name: Fluoresene Opth strip; Complete Time: 06:35 mh7 EC:10 Rate is 118 beats/min. Rhythm is regular, Sinus tachycardia. QRS Zap is Normal. SC mh7 interval is normal. QRS interval is normal. QT interval is normal. No Q waves. T waves are Normal. No ST changes noted. Clinical impression: Sinus tachycardia. Administered Medications: 02:45 Drug: Acetaminophen 1000 mg Route: PO; fu 03:21 Follow up: Response: Temperature is decreased fu 02:45 Drug: NS 0.9% (30 ml/kg) 30 ml/kg Route: IV; Rate: bolus; Site: right antecubital; fu 03:26 Drug: Rocephin (cefTRIAXone) 1 grams Route: IV; Rate: per protocol; Site: right fu antecubital; 04:00 Follow up: Response: No adverse reaction fu 07:51 Follow up: IV Status: Completed infusion; IV Intake: 100ml bp 04:00 Drug: NS 0.9% (30 ml/kg) 30 ml/kg Route: IV; Rate: bolus; Site: right forearm; fu 04:51 Drug: Tetracaine Drops 0.5 % 1 drops Route: Ophthalmic; Site: both eyes; fu 05:29 Follow up: Response: No adverse reaction fu Disposition Summary: 01/13/22 04:34 Hospitalization Ordered Hospitalization Status: Inpatient Admission [facility] Provider: Vicki Garcia Condition: Stable [facility] Problem: new [facility] Symptoms: have improved [facility] Bed/Room Type: Standard [facility] Location: Telemetry/MedSurg (Inpatient)(01/13/22 07:38) bd Room Assignment: 423(01/13/22 07:38) bd Diagnosis - UTI/ Urinary tract infection, site not specified [facility] - Sepsis, unspecified organism [facility] - Methamphetamine abuse [facility] Forms: - Medication Reconciliation Form [facility] - SBAR form [facility] Signatures: Dispatcher [employer] EDMS Jannet Del Angel Cindy, RN RN Tao Bustillos RN RN fu Holmes, Maurice, MD MD [facility] Haseeb Jimenez RN bp Corrections: (The following items were deleted from the chart) 02:02 02:01 PSHx: righ foot surgery; fu fu 02:12 02:11 Bilirubin Direct ordered. EDMS EDMS 02:41 02:15 ACETAMINOPHEN+C.LAB.BRZ ordered. EDMS EDMS 05:11 04:34 Telemetry/MedSurg (Inpatient) [facility] cg 05:11 04:34 7 cg 07:38 05:11 [facility] ER HOLD cg bd 07:38 05:11 ERHOLD- cg bd
[2022-01-13] MEDS ORDERED: TETRACAINE HCL 0.5% 4ML OPTH ONE (04:43)
[2022-01-13] MEDS ORDERED: FLUORESCEIN SODIUM 1 MG/WRAP ONE ×2 (04:45→06:34)
[2022-01-13] MEDS ORDERED: NA CHLORIDE 0.9% 500 ML ONE (04:47)
--- NOTE | 2022-01-13 05:11 | P.HP ---
Certification for Inpatient With expected LOS: >2 Midnights Patient will require the following post-hospital care: None Practitioner: I am a practitioner with admitting privileges, knowledge of patient current condition, hospital course, and medical plan of care. Services: Services provided to patient in accordance with Admission requirements found in Title 42 Section 412.3 of the Code of Federal Regulations Patient History Date of Service: 01/13/22 Primary Care Provider: None Reason for admission: Sepsis History of Present Illness: 56-year-old male with no past medical history who presented to the ED with complaints of fever, pain all over, and bilateral conjunctivitis. Patient had a temperature of 103 F and urine was found to have blood nitrites 1+ leuk esterase, 20-50 urine WBC, greater than 50 urine bacteria. BBC 7.9 with bands. Lactic acid 1.1. Sodium 132 pro-Tam 0.84. Tox positive for meth although patient denies drug use. urine and blood cultures drawn. CT head/sinuses negative. Patient's temp came down to 99F after 1000 mg tylenol in the ED. upon my assessment patient is sleepy but arousable. He states he is feeling better than when he came in. He denies any situations like this happening before. Patient was given sepsis fluids in the ED along with Rocephin. Patient will be admitted for further management and treatment of sepsis source most likely urine. Allergies No Known Allergies Allergy (Unverified 03/23/16 00:23) Home medications list reviewed: Yes Home Medications: Amlodipine Besylate [Norvasc] 10 mg PO DAILY #30 tablet 11/18/19 Aspirin [Aspir-Low] 81 mg PO DAILY #30 tablet. 11/18/19 Methylprednisolone [Medrol dosepack] 4 mg PO DIRECTED #1 desirae 11/18/19 levoFLOXacin [Levaquin] 500 mg PO DAILY #5 tab 11/18/19 - Past Medical/Surgical History Diabetic: No -: Sleep Apnea -: R foot surgery - Social History Smoking Status: Never smoker Alcohol use: No CD- Drugs: No Caffeine use: No Place of Residence: Home Review of Systems 10-point ROS is otherwise unremarkable General: Fever, Chills Eyes: Pain, Conjunctivae Inflammation, Eyelid Inflammation, Redness, As per HPI ENT: Throat Pain Musculoskeletal: As per HPI Physical Examination - Physical Exam General: Alert, In no apparent distress HEENT: Atraumatic, PERRLA, EOMI, Sclerae nonicteric Neck: Supple, 2+ carotid pulse no bruit, No LAD, Without JVD or thyroid abnormality Respiratory: Clear to auscultation bilaterally, Normal air movement Cardiovascular: Regular rate/rhythm, Normal S1 S2 Gastrointestinal: Normal bowel sounds, No tenderness Musculoskeletal: No tenderness Integumentary: No rashes Neurological: Normal speech, Normal strength at 5/5 x4 extr, Normal tone, Normal affect - Studies Laboratory Data (last 24 hrs) 01/13/22 02:29: PT 15.0 H, INR 1.30, APTT 27.7 01/13/22 02:29: WBC 7.90, Hgb 14.2, Hct 42.2, Plt Count 215 01/13/22 02:29: Sodium 132 L, Potassium 3.5, BUN 13, Creatinine 0.93, Glucose 96, Total Bilirubin 1.3 H, AST 22, ALT 21, Alkaline Phosphatase 93, Amylase 64, Lipase 109 Microbiology Data (last 24 hrs): 01/13/22 02:58 Throat Group A Streptococcus Rapid Screen - Final Assessment and Plan - Problems (Diagnosis) (1) Sepsis Current Visit: Yes Status: Acute Qualifiers: Sepsis type: sepsis due to unspecified organism Sepsis acute organ dysfunction status: without acute organ dysfunction Qualified Code(s): A41.9 - Sepsis, unspecified organism (2) UTI (urinary tract infection) Current Visit: Yes Status: Acute Qualifiers: Urinary tract infection type: acute cystitis Hematuria presence: with hematuria Qualified Code(s): N30.01 - Acute cystitis with hematuria (3) Bilateral conjunctivitis Current Visit: Yes Status: Acute Qualifiers: Conjunctivitis type: acute Acute conjunctivitis type: unspecified Qualified Code(s): H10.33 - Unspecified acute conjunctivitis, bilateral - Plan -likely source of sepsis from UTI -no leukocytosis or lactic acidosis. patient was initially febrile but is no longer. -1g rocephin given in the ED. blood and urine cultures drawn. will adjust antibiotic accordingly -sepsis fluids received in ED. will cont IVF at 100 ml/hr -monitor on tele -monitor conjunctivitis DVT PPx: lovenox Code: Full Discharge Plan: Home Plan to discharge in: Greater than 2 days - Advance Directives Does patient have a Living Will: No Does patient have a Durable POA for Healthcare: No - Code Status/Comfort Care Code Status Assessed: Yes (Full) Critical Care: No Time Spent Managing Pts Care (In Minutes): 70
[2022-01-13] MEDS ORDERED: ONDANSETRON 4 MG/2 ML VIAL IV PRN (05:20)
[2022-01-13] MEDS: NA CHLORIDE 0.9% 1,000 ML IV SCH ×2 (05:31→14:29)
[2022-01-13] MEDS ORDERED: NA CHLORIDE 0.9% 1,000 ML ONE (05:34)
[2022-01-13 05:50] VITALS: BMI 31.9
[2022-01-13] MEDS ORDERED: INFLUENZA VACCINE (for 6+ mo) 0.5 ML DOSE IMVAC ONE (08:00)
[2022-01-13 08:47] LABS: Absolute Lymphocytes (CBC) 0.8 K/uL (0.7-4.9); Hematocrit 43.1 % (39.6-49.0); Lymphocytes % 8.2 % (15.3-44.8); MPV 8.2 fL (7.6-11.3); RBC Red Blood Cell Count 5.17 M/uL (4.33-5.43)
[2022-01-13] MEDS: ENOXAPARIN 40 MG/0.4 ML SQ SCH (09:12)
[2022-01-13] MEDS: CEFTRIAXONE 1,000 MG in NA CHLORIDE 0.9% 50 ML IVPB SCH (09:12)
[2022-01-13 09:23] LABS: Bilirubin Total 0.8 mg/dL (0.2-1.0); Potassium 3.4 mmol/L (3.5-5.1); Protein, Total 6.9 g/dL (6.4-8.2); Thyroid Stimulating Hormone 0.547 uIU/mL (0.360-3.740)
[2022-01-13] MEDS: ACETAMINOPHEN 500 MG TAB PO PRN ×2 (10:02→21:01)
--- NOTE | 2022-01-13 11:05 | RAD REPORT ---
EXAM DESCRIPTION: RAD - Chest Single View - 01/13/2022 3:16 am CLINICAL HISTORY: Fever, Cough COMPARISON: None. TECHNIQUE: Chest 1 View AP FINDINGS: Trachea midline. Heart size and pulmonary vessels within normal limits. Lungs clear without evidence of consolidation, mass, or significant pulmonary edema. No significant pleural effusion or pneumothorax. Bones unremarkable. IMPRESSION: Unremarkable chest radiograph. Electronically signed by: Sukhdev Whelan MD 01/13/2022 3:33 AM DIPLOMATIC INTERPRETER Due to temporary technical issues with the PACS/Fluency reporting system, reports are being signed by the in house radiologist without review as a courtesy to ensure prompt reporting. The interpreting r adiologist is fully responsible for the content of the report.
--- NOTE | 2022-01-13 11:18 | RAD REPORT ---
EXAM DESCRIPTION: RAD - Ankle Right 3 View - 01/13/2022 3:16 am CLINICAL HISTORY: 56 years Male, PAIN COMPARISON: None. FINDINGS: Two screws projecting through the medial malleolus and four screws projecting over the saman us are demonstrated. No evidence of an acute fracture or dislocation. There is a small plantar calcan eal spur. There is an ossicle near the talonavicular joint. There is cortical irregularity in the reg ion of the talar head/neck. There is mild ankle soft tissue swelling. IMPRESSION: 1. No obvious acute fracture. 2. Cortical irregularity involving the talar head/neck , possibly related to old trauma. If concern for chronic fragmentation, avascular necrosis, or incomp lete fracture fragment union, follow-up CT can be performed. Electronically signed by: Fredrick Suh MD 01/13/2022 4:01 AM FLIGHT AGENT Due to temporary technical issues with the PACS/Fluency reporting system, reports are being signed by the in house radiologist without review as a courtesy to ensure prompt reporting. The interpreting r adiologist is fully responsible for the content of the report.
--- NOTE | 2022-01-13 11:23 | RAD REPORT ---
EXAM DESCRIPTION: RAD - Foot Right 3 View - 01/13/2022 3:16 am CLINICAL HISTORY: 56 years Male, PAIN COMPARISON: None. FINDINGS: Two screws projecting through the medial malleolus and four screws projecting over the saman us are demonstrated. No evidence of an acute fracture or dislocation. There is a small plantar calcan eal spur. There is an ossicle near the talonavicular joint. There is cortical irregularity in the reg ion of the talar head/neck. There is mild ankle soft tissue swelling. IMPRESSION: 1. No obvious acute fracture. 2. Cortical irregularity involving the talar head/neck, possibly related to old trauma. If concern for chronic fragmentation, avascular necrosis, or incomplete fracture fragment union, follow-up CT ca n be performed. Electronically signed by: Fredrick Suh MD 01/13/2022 4:01 AM RECYCLE DRIVER Due to temporary technical issues with the PACS/Fluency reporting system, reports are being signed by the in house radiologist without review as a courtesy to ensure prompt reporting. The interpreting r adiologist is fully responsible for the content of the report.
--- NOTE | 2022-01-13 11:25 | RAD REPORT ---
EXAM DESCRIPTION: CT - Facial Bones W Con Mpr - 01/13/2022 8:58 am CLINICAL HISTORY: Fall, pain, swelling TECHNIQUE: Axial computed tomography images of the face with intravenous contrast. Sagittal and co aron reformatted images were created and reviewed. This CT exam was performed using one or more of the following dose reduction techniques: automated exposure control, adjustment of the mA and/or k V according to patient size, and/or use of iterative reconstruction technique. COMPARISON: No relevant prior studies available. FINDINGS: Bones/joints: Bilateral nasal bone fracture deformities which appear well-corticated. No acute fracture. Soft tissues: Unremarkable. Orbits: Unremarkable. Sinuses: Unremarkable. No air-fluid levels. Dental: Poor dentition. Scattered dental caries and areas of periapical lucency. IMPRESSION: No acute findings in the face. Electronically signed by: Ivy Mills MD 01/13/2022 3:32 AM DEER FARM WORKER Due to temporary technical issues with the PACS/Fluency reporting system, reports are being signed by the in house radiologist without review as a courtesy to ensure prompt reporting. The interpreting r adiologist is fully responsible for the content of the report.
--- NOTE | 2022-01-13 11:31 | RAD REPORT ---
EXAM DESCRIPTION: CT - [id number] - 01/13/2022 8:58 am CLINICAL HISTORY: Fall;Pain COMPARISON: None Available. TECHNIQUE: Multiple helical axial tomographic images were obtained of the head and cervical spine wi thout intravenous contrast. This exam was performed according to our departmental dose-optimization p rogram, which includes automated exposure control, adjustment of the mA and/or kV according to patien t size and/or use of iterative reconstruction technique. FINDINGS: There is no acute intracranial hemorrhage. No mass. No midline shift. No ventriculomegaly. Roca-white matter differentiation is maintained. Paranasal sinuses are clear. Mastoid air cells and middle ear spaces are clear. Orbits and orbital co ntents are unremarkable. No acute calvarial fracture. No evidence of an acute fracture of the cervical spine. Vertebral body heights appear maintained. The re is mild disc space narrowing at multiple levels with small posterior disc osteophyte complexes. Fa cet joint degenerative changes of the left at C2-3 noted. Surrounding soft tissues are unremarkable. IMPRESSION: 1. No acute intracranial process. 2. No evidence of an acute fracture of the cervical spine. Electronically signed by: Fredrick Suh MD 01/13/2022 3:45 AM SUPERVISOR WORD PROCESSING Due to temporary technical issues with the PACS/Fluency reporting system, reports are being signed by the in house radiologist without review as a courtesy to ensure prompt reporting. The interpreting r adiologist is fully responsible for the content of the report.
[2022-01-14] MEDS: NA CHLORIDE 0.9% 1,000 ML IV SCH ×3 (01:20→20:40)
[2022-01-14 03:43] LABS: Absolute Lymphocytes (CBC) 0.9 K/uL (0.7-4.9); Hematocrit 39.5 % (39.6-49.0); Lymphocytes % 18.3 % (15.3-44.8); MPV 8.6 fL (7.6-11.3); RBC Red Blood Cell Count 4.73 M/uL (4.33-5.43)
[2022-01-14 03:59] LABS: ALT/SGPT 28 U/L (12-78); AST/SGOT 22 U/L (15-37); Albumin 2.7 g/dL (3.4-5.0); Alkaline Phosphatase 75 U/L (45-117); BUN Blood Urea Nitrogen 15 mg/dL (7-18); Bicarbonate 30 mmol/L (21-32); Bilirubin Total 0.4 mg/dL (0.2-1.0); Glucose Level 102 mg/dL (74-106); HDL Cholesterol 44 mg/dL (40-60); LDL Cholesterol, Calculated 39 (<130); Potassium 3.4 mmol/L (3.5-5.1); Protein, Total 6.4 g/dL (6.4-8.2); Sodium Level 139 mmol/L (136-145)
[2022-01-14] MEDS: ENOXAPARIN 40 MG/0.4 ML SQ SCH (08:38)
[2022-01-14] MEDS: CEFTRIAXONE 1,000 MG in NA CHLORIDE 0.9% 50 ML IVPB SCH (08:39)
[2022-01-14] MEDS: ACETAMINOPHEN 500 MG TAB PO PRN (11:26)
[2022-01-14] MEDS: MORPHINE 2 MG/ML SYR IV PRN (20:37)
[2022-01-15] MEDS: MORPHINE 2 MG/ML SYR IV PRN (04:45)
[2022-01-15 04:56] LABS: Absolute Lymphocytes (CBC) 1.9 K/uL (0.7-4.9); Hematocrit 39.5 % (39.6-49.0); Lymphocytes % 37.8 % (15.3-44.8); MPV 8.4 fL (7.6-11.3); RBC Red Blood Cell Count 4.82 M/uL (4.33-5.43)
[2022-01-15 05:10] LABS: ALT/SGPT 27 U/L (12-78); AST/SGOT 17 U/L (15-37); Albumin 2.6 g/dL (3.4-5.0); Alkaline Phosphatase 72 U/L (45-117); BUN Blood Urea Nitrogen 18 mg/dL (7-18); Bicarbonate 29 mmol/L (21-32); Bilirubin Total 0.2 mg/dL (0.2-1.0); Glucose Level 113 mg/dL (74-106); Potassium 3.5 mmol/L (3.5-5.1); Protein, Total 6.3 g/dL (6.4-8.2); Sodium Level 140 mmol/L (136-145)
[2022-01-15] MEDS: NA CHLORIDE 0.9% 1,000 ML IV SCH (07:20)
[2022-01-15] MEDS: CEFTRIAXONE 1,000 MG in NA CHLORIDE 0.9% 50 ML IVPB SCH (08:00)
[2022-01-15] MEDS: ENOXAPARIN 40 MG/0.4 ML SQ SCH (08:00)
[2022-01-15 09:13] VITALS: BP 162/91; TEMP 98; O2SAT 98
== END 2022-01-15 10:58 | disposition home or self-care (01) | DRG 872 ==
LOC: ER 01:12 → ERHOLD 04:56 → 4TH 07:59
PROVIDERS: ADMIT Hospitalist; ATTEND Hospitalist
DX: A41.9 Sepsis, unspecified organism (principal); N39.0 Urinary tract infection, site not specified; H10.33 Unspecified acute conjunctivitis, bilateral; Z23 Encounter for immunization; Z20.822 Contact with and (suspected) exposure to COVID-19
CPT/HCPCS: 0240U; 36415; 70450; 70487; 71045; 72125; 76377; 80048; 80053; 80061; 80076; 80307; 80320; 80329; 81003; 81015; 82150; 82550; 82553; 82565; 82947; 83605; 83690; 84145; 84439; 84443; 84484; 85025; 85610; 85730; 87040; 87070; 87077; 87081; 87086; 87088; 87186; 90471; 93005; 96365; 96366; 96375; 99285; J1650; J2270; J7030; J7040; Q2035; Q9967

== ENCOUNTER 2024-05-25 20:33 | Emergency (ER) | payer SELFPAY ==
[2024-05-25] MEDS ORDERED: DERMABOND SKIN ADHESIVE TOP ONE (20:36)
--- NOTE | 2024-05-25 20:52 | EDPHYS ---
Physician Documentation [facility] Name: Joni Kwan Age: 58 yrs Sex: Male : 1965 Arrival Date: 05/25/2024 Time: 20:33 Bed 12 Private MD: ED Physician Addy Villalpando HPI: 05/25 20:41 This 58 yrs old Male presents to ER via EMS with complaints of Varicose Vein kecia bleeding. 20:41 The patient presents with a puncture wound, varicose bleed, left le. The complaints kecia affect the left medial ankle. Context: The problem was sustained at home. Onset: The symptoms/episode began/occurred just prior to arrival. Modifying factors: The symptoms are alleviated by elevating leg, the symptoms are aggravated by weight bearing. Associated signs and symptoms: The patient has no apparent associated signs or symptoms. Severity of symptoms: At their worst the symptoms were moderate, in the emergency department the symptoms are unchanged. The patient has not experienced similar symptoms in the past. Historical: - Allergies: 20:38 Tramadol HCl; cm10 - PMHx: 20:38 Sleep Apnea; cm10 - PSHx: 20:38 right foot surgery; cm10 - Immunization history:: Adult Immunizations up to date. - Infectious Disease History:: Denies. - Social history:: Smoking status: unknown. - Family history:: not pertinent. ROS: 20:41 Constitutional: Negative for fever, chills, and weight loss, Eyes: Negative for injury, kecia pain, redness, and discharge, ENT: Negative for injury, pain, and discharge, Neck: Negative for injury, pain, and swelling, Cardiovascular: Negative for chest pain, palpitations, and edema, Respiratory: Negative for shortness of breath, cough, wheezing, and pleuritic chest pain, Abdomen/GI: Negative for abdominal pain, nausea, vomiting, diarrhea, and constipation, Back: Negative for injury and pain, : Negative for injury, bleeding, discharge, and swelling, Skin: Negative for injury, rash, and discoloration, Neuro: Negative for headache, weakness, numbness, tingling, and seizure, Psych: Negative for depression, anxiety, suicide ideation, homicidal ideation, and hallucinations, Allergy/Immunology: Negative for hives, rash, and allergies, Endocrine: Negative for neck swelling, polydipsia, polyuria, polyphagia, and marked weight changes, Hematologic/Lymphatic: Negative for swollen nodes, abnormal bleeding, and unusual bruising, 20:41 MS/extremity: Positive for of the left medial ankle, Exam: 20:41 Constitutional: This is a well developed, well nourished patient who is awake, alert, kecia and in no acute distress. Head/Face: Normocephalic, atraumatic. Eyes: Pupils equal round and reactive to light, extra-ocular motions intact. Lids and lashes normal. Conjunctiva and sclera are non-icteric and not injected. Cornea within normal limits. Periorbital areas with no swelling, redness, or edema. ENT: Nares patent. No nasal discharge, no septal abnormalities noted. Tympanic membranes are normal and external auditory canals are clear. Oropharynx with no redness, swelling, or masses, exudates, or evidence of obstruction, uvula midline. Mucous membranes moist. Neck: Trachea midline, no thyromegaly or masses palpated, and no cervical lymphadenopathy. Supple, full range of motion without nuchal rigidity, or vertebral point tenderness. No Meningismus. Chest/axilla: Normal chest wall appearance and motion. Nontender with no deformity. No lesions are appreciated. Cardiovascular: Regular rate and rhythm with a normal S1 and S2. No gallops, murmurs, or rubs. Normal PMI, no JVD. No pulse deficits. Respiratory: Lungs have equal breath sounds bilaterally, clear to auscultation and percussion. No rales, rhonchi or wheezes noted. No increased work of breathing, no retractions or nasal flaring. Abdomen/GI: Soft, non-tender, with normal bowel sounds. No distension or tympany. No guarding or rebound. No evidence of tenderness throughout. Back: No spinal tenderness. No costovertebral tenderness. Full range of motion. Male : Normal genitalia with no discharge or lesions. Skin: Warm, dry with normal turgor. Normal color with no rashes, no lesions, and no evidence of cellulitis. Neuro: Awake and alert, GCS 15, oriented to person, place, time, and situation. Cranial nerves II-XII grossly intact. Motor strength 5/5 in all extremities. Sensory grossly intact. Cerebellar exam normal. Normal gait. Psych: Awake, alert, with orientation to person, place and time. Behavior, mood, and affect are within normal limits. 20:41 Musculoskeletal/extremity: Circulation is intact in all extremities. Sensation intact. Compartment Syndrome exam of affected extremity: is normal. Weight bearing: able to fully bear weight, without difficulty, Vital Signs: 20:37 BP 162 / 79; Pulse 87; Resp 16; Temp 98.7; Pulse Ox 97% on R/A; Weight 104.33 kg; cm10 Height 5 ft. 5 in. ; Pain 0/10; 20:55 BP 127 / 89; Pulse 77; Resp 18; Pulse Ox 96% ; as6 20:37 Body Mass Index 38.27 (104.33 kg, 165.1 cm) cm10 20:37 Pain Scale: Adult cm10 Nicolette Coma Score: 20:41 Eye Response: spontaneous(4). Motor Response: obeys commands(6). Verbal Response: kecia oriented(5). Total: 15. Procedures: 20:41 Performed varicose bleeding,left lower ext. prepped , dermabond applied. kecia MDM: 20:40 Patient medically screened. kecia 20:41 Differential diagnosis: contusion, abrasion. Data reviewed: vital signs, nurses notes. kecia Consideration of Admission/Observation Escalation of care including admission/observation considered. I considered the following discharge prescriptions or medication management in the emergency department Medications were administered in the Emergency Department. See MAR. Test considered but Not performed: Labs: no labs. Care significantly affected by the following chronic conditions: Obesity, varicose veines. Administered Medications: No medications were administered Disposition Summary: 05/25/24 20:51 Discharge Ordered Notes: Location: Home kecia Problem: new kecia Symptoms: have improved kecia Condition: Stable kecia Diagnosis - Varicose veins of unspecified lower extremity with other complications - bleeding kecia Followup: kecia - With: Nolberto Chapin MD - When: 2 - 3 days - Reason: Recheck today's complaints, Re-evaluation by your physician Followup: kecia - With: Private Physician - When: 2 - 3 days - Reason: Recheck today's complaints, Continuance of care, Re-evaluation by your physician Discharge Instructions: - Discharge Summary Sheet kecia - Tissue Adhesive Wound Care kecia - Varicose Veins kecia - Tissue Adhesive Wound Care, [id number] kecia Forms: - Medication Reconciliation Form kecai - Antibiotic Education kecia - Prescription Opioid Use kecia - Patient Portal Instructions kecia - Leadership Thank You Letter kecia Signatures: Addy Villalpando MD MD cha Martinez, Clarissa, RN RN cm10
--- NOTE | 2024-05-25 20:52 | ER ---
Nurse's Notes [facility] Name: Joni Kwan Age: 58 yrs Sex: Male : 1965 Arrival Date: 05/25/2024 Time: 20:33 Bed 12 Private MD: Diagnosis: Varicose veins of unspecified lower extremity with other complications-bleeding Presentation: 05/25 20:37 Chief complaint: EMS states: Called to patient's home due to varicose vein bleeding to cm10 left lower leg. Pt arrived with left leg bandaged. Coronavirus screen: Client denies travel out of the [place] in the last 14 days. At this time, the client does not indicate any symptoms associated with coronavirus-19. Ebola Screen: Patient denies travel to an Ebola-affected area in the 21 days before illness onset. No symptoms or risks identified at this time. Initial Sepsis Screen: Does the patient meet any 2 criteria? No. Patient's initial sepsis screen is negative. Does the patient have a suspected source of infection? No. Patient's initial sepsis screen is negative. Risk Assessment: Do you want to hurt yourself or someone else? Patient reports no desire to harm self or others. Onset of symptoms was May 25, 2024. 20:37 Method Of Arrival: EMS: [facility] cm10 20:37 Acuity: KAE 4 cm10 Triage Assessment: 20:39 General: Appears in no apparent distress. comfortable, Behavior is calm, cooperative, cm10 appropriate for age. Pain: Denies pain. Neuro: No deficits noted. Level of Consciousness is awake, alert, obeys commands, Oriented to person, place, time, situation, Appropriate for age. Respiratory: No deficits noted. Airway is patent Respiratory effort is even, unlabored, Respiratory pattern is regular, symmetrical. Derm: Varicose vein bleeding left lower leg. Historical: - Allergies: 20:38 Tramadol HCl; cm10 - PMHx: 20:38 Sleep Apnea; cm10 - PSHx: 20:38 right foot surgery; cm10 - Immunization history:: Adult Immunizations up to date. - Infectious Disease History:: Denies. - Social history:: Smoking status: unknown. - Family history:: not pertinent. Screenin:40 [facility] ED Fall Risk Assessment (Adult) History of falling in the last 3 months, cm10 including since admission No falls in past 3 months (0 pts) Confusion or Disorientation No (0 pts) Intoxicated or Sedated No (0 pts) Impaired Gait No (0 pts) Mobility Assist Device Used No (0 pt) Altered Elimination No (0 pt) Score/Fall Risk Level 0 - 2 = Low Risk Oriented to surroundings, Maintained a safe environment, Hourly rounding (assess needs \T\ fall precautionary measures) done. Abuse screen: Denies threats or abuse. Denies injuries from another. Nutritional screening: No deficits noted. Tuberculosis screening: No symptoms or risk factors identified. Vital Signs: 20:37 BP 162 / 79; Pulse 87; Resp 16; Temp 98.7; Pulse Ox 97% on R/A; Weight 104.33 kg; cm10 Height 5 ft. 5 in. ; Pain 0/10; 20:55 BP 127 / 89; Pulse 77; Resp 18; Pulse Ox 96% ; as6 20:37 Body Mass Index 38.27 (104.33 kg, 165.1 cm) cm10 20:37 Pain Scale: Adult cm10 Nicolette Coma Score: 20:41 Eye Response: spontaneous(4). Motor Response: obeys commands(6). Verbal Response: kecia oriented(5). Total: 15. ED Course: 20:34 Patient arrived in ED. ty 20:38 Triage completed. cm10 20:39 Addy Villalpando MD is Attending Physician. kecia 20:40 Arm band placed on Patient placed in an exam room, on a stretcher, on pulse oximetry. cm10 20:40 Patient has correct armband on for positive identification. Bed in low position. Call cm10 light in reach. Side rails up X 1. Provided Education on: ER process and procedures. 20:40 No provider procedures requiring assistance completed. Patient did not have IV access cm10 during this emergency room visit. 20:40 Wound care: was Dermabond placed on bleeding varicose vein by Dr. Villalpando. cm10 20:49 Nolberto Chapin MD is Referral Physician. kecia Administered Medications: No medications were administered Medication: 20:40 VIS not applicable for this client. cm10 Outcome: 20:51 Discharge ordered by . kecia 20:56 Discharged to home ambulatory, with significant other, as6 20:56 Condition: stable 20:56 Discharge instructions given to patient, Instructed on discharge instructions, follow up and referral plans. Demonstrated understanding of instructions, follow-up care, 20:56 Patient left the ED. as6 Signatures: Addy Villalpando MD MD cha Slawson, Ashby RN RN as6 Lilliana Barrera RN RN cm10 Federico Ko
[2024-05-25 21:03] VITALS: BP 127/89; TEMP 98.7; O2SAT 96
== END 2024-05-25 20:56 | disposition home or self-care (01) ==
LOC: ER 20:33
DX: I83.892 Varicose veins of left lower extremity with other complications (principal)
CPT/HCPCS: 99284

== ENCOUNTER 2024-09-26 03:11 | Emergency (ER) | payer BC ==
[2024-09-26] MEDS ORDERED: LORazepam 2 MG/ML VIAL ONE ×2 (03:29→06:43)
[2024-09-26] MEDS ORDERED: MORPHINE 4 MG/ML SYR ONE (03:30)
[2024-09-26] MEDS ORDERED: NA CHLORIDE 0.9% 1,000 ML ONE ×2 (03:30→06:50)
[2024-09-26 03:39] LABS: PT Prothrombin Time 14.3 SECONDS (9.4-12.5); Protime INR 1.29
[2024-09-26 03:40] LABS: Absolute Eosinophils 0.1 K/uL (0-0.5); Absolute Lymphocytes (CBC) 0.5 K/uL (0.7-4.9); Absolute Neutrophil 4.5 K/uL (1.8-8.0); Basophils % 0.8 % (0-1.3); Eosinophils % 1.8 % (0-4.4); Hemoglobin 14.5 g/dL (13.6-17.9); Lymphocytes % 9.7 % (15.3-44.8); MCH 27.2 pg (27.0-35.0); MCHC 32.2 g/dL (32.0-36.0); MCV 84.5 fL (80-100); MPV 9.6 fL (7.6-11.3); Monocytes % 0.6 % (3.3-12.3); Neutrophils % 87.1 % (41.7-73.7); Platelets 197 thou/uL (152-406); RBC Red Blood Cell Count 5.32 M/uL (4.33-5.43); Red Cell Distribution Width 14.9 % (12.1-15.2)
[2024-09-26 04:08] LABS: Albumin 3.4 g/dL (3.4-5.0); Albumin/Globulin Ratio 0.8 (1.1-1.8); Anion Gap 7.4 mEq/L (5.0-15.0); Bilirubin Direct 0.4 mg/dL (0-0.2); Bilirubin Total 1.4 mg/dL (0.2-1.0); Globulin 4.1 g/dL (2.3-3.5); Potassium 3.4 mEq/L (3.5-5.1); Protein, Total 7.5 g/dL (6.4-8.2); Troponin High Sensitivity 10.2 pg/mL (<58.9)
[2024-09-26 04:53] LABS: Band Neutrophils 36 % (0-1); Blood Morphology Comment NOT SEEN (NOT SEEN); Differential Total Cells Count 100; Eosinophils 2 % (0-3); Lymphocytes 18 % (15-42); Monocytes 1 % (0-10); Platelet Estimate ADEQ; Segmented Neutrophils 43 % (40-80)
--- NOTE | 2024-09-26 04:55 | RAD REPORT ---
CLINICAL HISTORY: Chest pain. COMPARISON: None. TECHNIQUE: XR CHEST 1 VIEW 09/26/2024 3:13 AM REFINERY OPERATOR LIGHT ENDS RECOVERY FINDINGS: Cardiac silhouette is normal in size. Lungs are clear without consolidation, atelectasis, mass or abigail ma. There is no pleural effusion. There is no pneumothorax. There are no acute osseous findings. IMPRESSION: Clear lungs. Electronically signed by: Jeffrey Galarza MD 09/26/2024 03:59 AM REFINERY OPERATOR LIGHT ENDS RECOVERY RP Due to temporary technical issues with the PACS[employer] Software reporting system, reports are being rajeev d by the in-house radiologist without review as a courtesy to ensure prompt reporting the interpreting radiologist is fully responsible for the content of the report. Transcribed Date/Time: 09/26/2024 4:55 AM
[2024-09-26 05:58] LABS: Barbiturates NEGATIVE (NEGATIVE); Benzodiazepines NEGATIVE (NEGATIVE); Cocaine NEGATIVE (NEGATIVE); METHAMPHETAM POSITIVE (NEGATIVE); Methadone NEGATIVE (NEGATIVE); Opiates POSITIVE (NEGATIVE); Phencyclidine NEGATIVE (NEGATIVE); THC Cannibis NEGATIVE (NEGATIVE)
[2024-09-26] MEDS ORDERED: MORPHINE 2 MG/ML SYR ONE (06:43)
--- NOTE | 2024-09-26 07:32 | RAD REPORT ---
EXAM: Angio Aorta For Dissection CLINICAL INDICATION: Male, 59 years chest pain TECHNIQUE: CTA of the aorta was obtained including the chest, abdomen and pelvis, with IV contrast, a s per department protocol. Axial, sagittal and coronal reconstructions were obtained. Post-processing was applied at the acquisition scanner with concurrent physician supervision which in cludes 3D reconstructions, MIPs, volume rendered images and/or shaded surface rendering. One or more of the following dose reduction techniques were used: Automated exposure control, adjustment of the mA and/or kV according to the patient size, and/or iterative reconstruction. Unless otherwise specified, incidental findings do not require dedicated imaging follow-up. [id number]. COMPARISON: No prior exam. FINDINGS: Chest: LOWER NECK/CHEST WALL: Visualized thyroid gland and soft tissues are normal. LUNGS AND AIRWAYS: Motion artifact. PLEURA: No pleural effusion. No pneumothorax. Hemidiaphragms are normally positioned. MEDIASTINUM AND LYMPH NODES: No mediastinal mass or fluid collection. Normal size mediastinal, hilar, and axillary lymph nodes. THORACIC AORTA: Normal caliber and configuration. PULMONARY ARTERIES: Normal caliber. Motion limited. HEART: Unremarkable. Abdomen/Pelvis LIVER: Hepatic steatosis GALLBLADDER/BILE DUCTS: No biliary ductal dilatation. PANCREAS: No mass, ductal dilation, or joey-pancreatic fluid. SPLEEN: Normal size. No focal lesion. ADRENALS: Normal; no mass. KIDNEYS AND URETERS: Normal size and contour. No hydronephrosis. GASTROINTESTINAL TRACT: Normal appendix. No bowel function. PERITONEUM: No free fluid. LYMPH NODES: No lymphadenopathy. ABDOMINAL AORTA AND OTHER VESSELS: Normal caliber aorta and IVC. URINARY BLADDER: Normal contour. REPRODUCTIVE ORGANS: Mild prostatomegaly. MUSCULOSKELETAL: No acute or suspicious osseous abnormality. ADDITIONAL FINDINGS: None IMPRESSION: No aortic aneurysm or dissection. No acute or significant abnormalities in the chest, abdomen, or pel vis.
--- NOTE | 2024-09-26 07:34 | EDPHYS ---
Physician Documentation [facility] Name: Joni Kwan Age: 59 yrs Sex: Male : 1965 Arrival Date: 09/26/2024 Time: 03:11 Bed 4 Private MD: ED Physician Emily Mejia HPI: 09/26 05:01 This 59 yrs old Male presents to ER via EMS with complaints of Chest Pain, sp4 Shortness Of Breath. 05:20 59-year-old male presents with acute complaint of chest pain associated with difficulty sp4 breathing and rapid heart rate. Patient states this woke him up from his sleep. Patient has history of varicose veins but other than that had no further history. Historical: - Allergies: 03:17 Tramadol HCl; bm8 - Home Meds: 03:17 None [Active]; bm8 - PMHx: 03:17 Sleep Apnea; bm8 - PSHx: 03:17 right foot surgery; bm8 - Immunization history:: Adult Immunizations up to date. - Infectious Disease History:: Denies. - Social history:: Smoking status: Patient denies any tobacco usage or history of. Patient/guardian denies using alcohol, street drugs. - Family history:: not pertinent. ROS: 05:20 Constitutional: Negative for fever, chills, and weight loss, positive chest pain and sp4 shortness of breath, positive palpitations 05:20 All other systems are negative, Exam: 05:20 Constitutional: This is a well developed, well nourished patient who is awake, alert, sp4 and in no acute distress. Head/Face: Normocephalic, atraumatic. Eyes: Pupils equal round and reactive to light, extra-ocular motions intact. Lids and lashes normal. Conjunctiva and sclera are not injected. Cornea within normal limits. Periorbital areas with no swelling, redness, or edema. ENT: Nares patent. No nasal discharge, no septal abnormalities noted. Tympanic membranes are normal and external auditory canals are clear. Oropharynx with no redness, swelling, or masses, exudates, or evidence of obstruction, uvula midline. Mucous membranes moist. Neck: Trachea midline, no thyromegaly or masses palpated, and no cervical lymphadenopathy. Supple, full range of motion without nuchal rigidity, or vertebral point tenderness. Chest/axilla: Normal chest wall appearance and motion. Nontender with no deformity. No lesions are appreciated. Cardiovascular: Regular rate and rhythm with a normal S1 and S2. No gallops, murmurs, or rubs. Normal PMI, no JVD. No pulse deficits. Respiratory: Lungs have equal breath sounds bilaterally, clear to auscultation and percussion. No rales, rhonchi or wheezes noted. No increased work of breathing, no retractions or nasal flaring. Abdomen/GI: Soft, with normal bowel sounds. No distension or tympany. No guarding or rebound. No evidence of tenderness throughout. Back: No spinal tenderness. No costovertebral tenderness. Skin: Warm, dry with normal turgor. Normal color with no rashes, no lesions, and no evidence of cellulitis. MS/ Extremity: Pulses equal, no cyanosis. Neurovascular intact. Full, normal range of motion. Neuro: Awake and alert, GCS 15, oriented to person, place, time, and situation. Cranial nerves II-XII grossly intact. Motor strength 5/5 in all extremities. Sensory grossly intact. Psych: Awake, alert, with orientation to person, place and time. Behavior, mood, and affect are within normal limits 05:20 ECG was reviewed by the Attending Physician. EKG at 0309 sinus tachycardia rate 118 otherwise normal. Vital Signs: 03:14 BP 171 / 89; Pulse 111; Resp 19; Temp 98.8; Pulse Ox 94% on R/A; Weight 99.79 kg; bm8 Height 5 ft. 5 in. ; Pain 6/10; 04:06 BP 165 / 74; Pulse 114; Resp 19; Temp 98.8; Pulse Ox 100% ; Pain 5/10; bm8 05:00 BP 164 / 82; Pulse 110; Resp 20; Temp 98.8; Pulse Ox 96% on 2 lpm NC; Pain 0/10; bm8 06:17 BP 162 / 91; Pulse 109; Resp 13; Temp 98.8; Pulse Ox 96% ; Pain 0/10; bm8 07:37 BP 178 / 113; Pulse 135; Resp 26; Pulse Ox 96% ; ph 03:14 Body Mass Index 36.61 (99.79 kg, 165.1 cm) 8 03:14 Pain Scale: Adult bm8 04:06 Pain Scale: Adult bm8 05:00 Pain Scale: Adult bm8 06:17 Pain Scale: Adult bm8 [place] Coma Score: 03:19 Eye Response: spontaneous(4). Motor Response: obeys commands(6). Verbal Response: bm8 oriented(5). Total: 15. 05:00 Eye Response: spontaneous(4). Motor Response: obeys commands(6). Verbal Response: bm8 oriented(5). Total: 15. 05:20 Eye Response: spontaneous(4). Motor Response: obeys commands(6). Verbal Response: sp4 oriented(5). Total: 15. MDM: 03:15 Medical Screening Exam initiated sp4 05:19 ED course: CLINICAL HISTORY: Chest pain. COMPARISON: None. 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 Lungs are clear without consolidation, atelectasis, mass or edema. There is no pleural effusion. There is no pneumothorax. There are no acute osseous findings. IMPRESSION: Clear lungs. Electronically signed by: Jeffrey Galarza MD . 06:51 Differential diagnosis: acute myocardial infarction, acute pericarditis, anxiety, sp4 coronary artery disease chest wall pain, congestive heart failure esophagitis, gastritis, gastroesophageal reflux disease (GERD), unstable angina. HEART Score: History: Slightly Suspicious (0), ECG: Normal (0), Age: > 45 and < 65 years (1), Risk Factors: No Risk Factors Known (0), Troponin: < or = 1 x Normal Limit (0), Total Score = 1. Data reviewed: vital signs, nurses notes, EMS record, old medical records, lab test result(s), EKG, radiologic studies, CT scan, plain films. Transition of care: After a detail discussion of the patient's case, care is transferred to Emily Mejia MD. 09/26 03:13 Order name: Urine Drug Screen; Complete Time: 06:00 sp4 09/26 03:13 Order name: Basic Metabolic Panel; Complete Time: 05:18 sp4 09/26 03:13 Order name: CBC with Diff; Complete Time: 05:18 sp4 09/26 03:13 Order name: LFT's; Complete Time: 05:18 sp4 09/26 03:13 Order name: Magnesium; Complete Time: 05:18 sp4 09/26 03:13 Order name: NT PRO-BNP; Complete Time: 05:18 sp4 09/26 03:13 Order name: PT-INR; Complete Time: 05:18 sp4 09/26 03:13 Order name: Troponin HS; Complete Time: 05:18 sp4 09/26 03:57 Order name: Manual Differential; Complete Time: 05:18 EDMS 09/26 05:51 Order name: Troponin High Sensitivity; Complete Time: 06:41 sp4 09/26 03:13 Order name: XRAY Chest (1 view) 4 09/26 06:39 Order name: CT Aorta for Dissection; Complete Time: 07:33 sp4 09/26 03:13 Order name: EKG; Complete Time: 03:14 sp4 09/26 03:13 Order name: Cardiac monitoring; Complete Time: 03:21 sp4 09/26 03:13 Order name: EKG - Nurse/Tech; Complete Time: 03:17 sp4 09/26 03:13 Order name: IV Saline Lock; Complete Time: 03:21 sp4 09/26 03:13 Order name: Labs collected and sent; Complete Time: 03:21 sp4 09/26 03:13 Order name: O2 Per Protocol; Complete Time: 03:21 sp4 09/26 03:13 Order name: O2 Sat Monitoring; Complete Time: 03:21 sp4 EC:20 Rate is 118 beats/min. Rhythm is regular, Sinus tachycardia. QRS [place] is Normal. VT sp4 interval is normal. QRS interval is normal. QT interval is normal. No Q waves. T waves are Normal. No ST changes noted. Clinical impression: No evidence of ischemia. Interpreted by me. Reviewed by me. Administered Medications: 03:42 Drug: morphine IVP or IV 4 mg IVP once over 4 mins Route: IVP; Infused Over: 4 mins; bm8 Site: left antecubital; 06:19 Follow up: Response: No adverse reaction bm8 03:42 Drug: NS 0.9% IV 1000 ml IV at 125 ml/hr continuous Route: IV; Rate: 125 ml/hr; Site: bm8 left antecubital; 06:18 Follow up: Response: No adverse reaction; IV Status: Completed infusion; IV Intake: bm8 1000ml ; provider gave verbal instructions to bolus fluids in. 03:43 Drug: Ativan IVP 1 mg IVP once Route: IVP; Site: left antecubital; bm8 06:19 Follow up: Response: No adverse reaction bm8 06:47 Drug: Ativan IVP 1 mg IVP once Route: IVP; Site: left antecubital; dd2 07:15 Follow up: Response: No adverse reaction; Anxiety decreased; RASS: Drowsy (-1) ph 06:47 Drug: morphine IVP or IV 2 mg IVP once over 4 mins Route: IVP; Infused Over: 4 mins; dd2 Site: left antecubital; 07:15 Follow up: Response: No adverse reaction; RASS: Drowsy (-1) ph 06:55 Drug: NS 0.9% IV 1000 ml IV at 125 ml/hr continuous Route: IV; Rate: 125 ml/hr; Site: 8 left antecubital; 08:00 Follow up: Response: No adverse reaction; IV Status: Completed infusion ph Disposition Summary: 09/26/24 07:34 Discharge Ordered Notes: Location: Home sp3 Condition: Stable sp3 Diagnosis - Chest pain, methamphetamine use sp3 Followup: sp3 - With: Private Physician - When: Upon discharge from the Emergency Department - Reason: Continuance of care Discharge Instructions: - Discharge Summary Sheet sp3 - Methamphetamines Use Disorder sp3 Forms: - Medication Reconciliation Form sp3 - Antibiotic Education sp3 - Prescription Opioid Use sp3 - Patient Portal Instructions sp3 - Leadership Thank You Letter sp3 Signatures: Dispatcher [employer] EDEmily Ledesma MD MD sp3 Seth Dent MD MD sp4 Humberto Rajan RN RN bm8 LUCA GONZALEZ RN RN dd2 Roma Nolasco RN ph Corrections: (The following items were deleted from the chart) 05:51 05:51 Troponin High Sensitivity+C.LAB.BRZ ordered. EDMS EDMS
--- NOTE | 2024-09-26 07:34 | ER ---
Nurse's Notes [facility] Name: Joni Kwan Age: 59 yrs Sex: Male : 1965 Arrival Date: 09/26/2024 Time: 03:11 Bed 4 Private MD: Diagnosis: Chest pain, methamphetamine use Presentation: 09/26 03:14 Chief complaint: Patient states: chest pain that woke me from sleep right in the middle bm8 of the chest radiates to my back and left arm. Coronavirus screen: At this time, the client does not indicate any symptoms associated with coronavirus-19. Ebola Screen: Patient negative for fever greater than or equal to 101.5 degrees Fahrenheit, and additional compatible Ebola Virus Disease symptoms Patient denies exposure to infectious person. Patient denies travel to an Ebola-affected area in the 21 days before illness onset. No symptoms or risks identified at this time. Initial Sepsis Screen: Does the patient meet any 2 criteria? No. Patient's initial sepsis screen is negative. Does the patient have a suspected source of infection? No. Patient's initial sepsis screen is negative. Initial Sepsis Screen: Does the patient meet any 2 criteria?. Risk Assessment: Do you want to hurt yourself or someone else? Patient reports no desire to harm self or others. Onset of symptoms was September 26, 2024 at 02:00. 03:14 Method Of Arrival: EMS: [facility] bm8 03:14 Acuity: KAE 3 bm8 03:18 Care prior to arrival: Medication(s) given: nitro sl 0.4mg, aspirin 324mg IV initiated. bm8 18 GA, in the left antecubital area. Triage Assessment: 03:17 General: Appears in no apparent distress. comfortable, Behavior is calm, cooperative, bm8 appropriate for age. Pain: Complains of pain in xiphoid area and mid-sternal area Pain radiates to back and left arm Pain currently is 6 out of 10 on a pain scale. Quality of pain is described as pressure, sharp. EENT: No deficits noted. No signs and/or symptoms were reported regarding the EENT system. Neuro: No deficits noted. Level of Consciousness is awake, alert, obeys commands, Oriented to person, place, time, situation, Appropriate for age. Cardiovascular: Reports chest pain, Heart tones S1 S2 present Capillary refill < 3 seconds in bilateral fingers Patient's skin is warm and dry. Rhythm is sinus tachycardia. Respiratory: Airway is patent Respiratory effort is even, unlabored, Respiratory pattern is regular, symmetrical, Breath sounds are clear bilaterally. GI: No signs and/or symptoms were reported involving the gastrointestinal system. : No signs and/or symptoms were reported regarding the genitourinary system. Derm: No signs and/or symptoms reported regarding the dermatologic system. Musculoskeletal: No signs and/or symptoms reported regarding the musculoskeletal system. Historical: - Allergies: 03:17 Tramadol HCl; bm8 - Home Meds: 03:17 None [Active]; bm8 - PMHx: 03:17 Sleep Apnea; bm8 - PSHx: 03:17 right foot surgery; bm8 - Immunization history:: Adult Immunizations up to date. - Infectious Disease History:: Denies. - Social history:: Smoking status: Patient denies any tobacco usage or history of. Patient/guardian denies using alcohol, street drugs. - Family history:: not pertinent. Screenin:19 [facility] ED Fall Risk Assessment (Adult) History of falling in the last 3 months, bm8 including since admission No falls in past 3 months (0 pts) Confusion or Disorientation No (0 pts) Intoxicated or Sedated No (0 pts) Impaired Gait No (0 pts) Mobility Assist Device Used No (0 pt) Altered Elimination No (0 pt) Score/Fall Risk Level 0 - 2 = Low Risk Oriented to surroundings, Maintained a safe environment, Educated pt \T\ family on fall prevention, incl call for assistance when getting out of bed, Assessed \T\ reinforced patient's understanding of fall precautions, Hourly rounding (assess needs \T\ fall precautionary measures) done, Used ambulatory aids as needed (educated on \T\ assisted with), Used gait belt as appropriate. Abuse screen: Denies threats or abuse. Nutritional screening: No deficits noted. Tuberculosis screening: No symptoms or risk factors identified. Assessment: :19 Reassessment: see triage note. bm8 05:00 Reassessment: Patient appears in no apparent distress at this time. Patient and/or bm8 family updated on plan of care and expected duration. Pain level reassessed. Patient is alert, oriented x 3, equal unlabored respirations, skin warm/dry/pink. pt is resting with eyes closed breathing is even unlabored with symmetrical rise and fall of chest. Pain: Denies pain. Pain began 4 hours ago. 06:17 Reassessment: Patient appears in no apparent distress at this time. No changes from bm8 previously documented assessment. Patient and/or family updated on plan of care and expected duration. Pain level reassessed. Patient is alert, oriented x 3, equal unlabored respirations, skin warm/dry/pink. Patient denies pain at this time. Patient states feeling better. Patient states symptoms have improved. 06:55 Reassessment: pt to ct. bm8 Vital Signs: 03:14 BP 171 / 89; Pulse 111; Resp 19; Temp 98.8; Pulse Ox 94% on R/A; Weight 99.79 kg; bm8 Height 5 ft. 5 in. ; Pain 6/10; 04:06 BP 165 / 74; Pulse 114; Resp 19; Temp 98.8; Pulse Ox 100% ; Pain 5/10; bm8 05:00 BP 164 / 82; Pulse 110; Resp 20; Temp 98.8; Pulse Ox 96% on 2 lpm NC; Pain 0/10; bm8 06:17 BP 162 / 91; Pulse 109; Resp 13; Temp 98.8; Pulse Ox 96% ; Pain 0/10; bm8 07:37 BP 178 / 113; Pulse 135; Resp 26; Pulse Ox 96% ; ph 03:14 Body Mass Index 36.61 (99.79 kg, 165.1 cm) bm8 03:14 Pain Scale: Adult bm8 04:06 Pain Scale: Adult bm8 05:00 Pain Scale: Adult bm8 06:17 Pain Scale: Adult bm8 Nicolette Coma Score: 03:19 Eye Response: spontaneous(4). Motor Response: obeys commands(6). Verbal Response: bm8 oriented(5). Total: 15. 05:00 Eye Response: spontaneous(4). Motor Response: obeys commands(6). Verbal Response: bm8 oriented(5). Total: 15. 05:20 Eye Response: spontaneous(4). Motor Response: obeys commands(6). Verbal Response: sp4 oriented(5). Total: 15. ED Course: 03:12 Patient arrived in ED. [email or web address] 03:13 Seth Dent MD is Attending Physician. sp4 03:14 Humberto Rajan, RN is Primary Nurse. bm8 03:17 Triage completed. bm8 03:17 Arm band placed on right wrist. bm8 03:19 Patient has correct armband on for positive identification. Placed in gown. Bed in low bm8 position. Call light in reach. Side rails up X2. Client placed on continuous cardiac and pulse oximetry monitoring. NIBP monitoring applied. teletypesetter monitor on. Pulse ox on. NIBP on. Door closed. Noise minimized. Warm blanket given. Pillow given. Verbal reassurance given. Head of bed elevated. 03:19 Maintain EMS IV. Dressing intact. Good blood return noted. Site clean \T\ dry. Gauge \T\ bm 8 site: 18g lac. Flushed with 10 mL NS IV is patent, with fluids infusing freely, with good blood return. Oxygen administration via nasal cannula \T\ 2L/min Response to oxygen therapy: symptoms improved. 03:39 XRAY Chest (1 view) In Process Unspecified. EDMS 04:06 No provider procedures requiring assistance completed. bm8 07:12 Attending Physician role handed off by Seth Dent MD sp3 07:12 Emily Mejia MD is Attending Physician. sp3 07:22 CT Aorta for Dissection In Process Unspecified. EDMS 08:03 IV discontinued, intact, bleeding controlled, No redness/swelling at site. Pressure ph dressing applied. Administered Medications: 03:42 Drug: morphine IVP or IV 4 mg IVP once over 4 mins Route: IVP; Infused Over: 4 mins; bm8 Site: left antecubital; 06:19 Follow up: Response: No adverse reaction bm8 03:42 Drug: NS 0.9% IV 1000 ml IV at 125 ml/hr continuous Route: IV; Rate: 125 ml/hr; Site: bm8 left antecubital; 06:18 Follow up: Response: No adverse reaction; IV Status: Completed infusion; IV Intake: bm8 1000ml ; provider gave verbal instructions to bolus fluids in. 03:43 Drug: Ativan IVP 1 mg IVP once Route: IVP; Site: left antecubital; bm8 06:19 Follow up: Response: No adverse reaction bm8 06:47 Drug: Ativan IVP 1 mg IVP once Route: IVP; Site: left antecubital; dd2 07:15 Follow up: Response: No adverse reaction; Anxiety decreased; RASS: Drowsy (-1) ph 06:47 Drug: morphine IVP or IV 2 mg IVP once over 4 mins Route: IVP; Infused Over: 4 mins; dd2 Site: left antecubital; 07:15 Follow up: Response: No adverse reaction; RASS: Drowsy (-1) ph 06:55 Drug: NS 0.9% IV 1000 ml IV at 125 ml/hr continuous Route: IV; Rate: 125 ml/hr; Site: bm8 left antecubital; 08:00 Follow up: Response: No adverse reaction; IV Status: Completed infusion ph Medication: 03:19 VIS not applicable for this client. bm8 Intake: 06:18 IV: 1000ml; Total: 1000ml. bm8 Outcome: 07:34 Discharge ordered by . [email or web address] 08:03 Patient left the ED. ph 08:03 Discharged to home ambulatory, with significant other, ph 08:03 Condition: good 08:03 Discharge instructions given to patient, significant other, Instructed on discharge instructions, follow up and referral plans. Demonstrated understanding of instructions, follow-up care, Signatures: Dispatcher [employer] EDRoma Montoya RN RN Emily Mejia MD MD sp3 Desire Carlin Sergey, MD MD sp4 Humberto Rajan RN RN bm8 LUCA GONZALEZ RN RN dd2
[2024-09-26 08:08] VITALS: TEMP 98.8
[2024-09-26 08:11] VITALS: O2SAT 96
[2024-09-26 08:13] VITALS: BP 178/113
== END 2024-09-26 08:03 | disposition home or self-care (01) ==
LOC: ER 03:11
DX: F15.90 Other stimulant use, unspecified, uncomplicated (principal)
CPT/HCPCS: 85025; 80048; 36415; 83735; 85610; 80076; 84484 ×2; 83880; 80307; 71275; 74175; 71045; Q9967; J2270; J7030 ×2